=== PATIENT | male | born 1980 | race Two or more races ===

== ENCOUNTER 2024-04-04 12:32 | Inpatient (IN) | payer MEDICARE, MEDICAID ==
[~2024-04-04] VITALS: Ht 172.7 cm; Wt 89.1 kg
[2024-04-04 13:00] VITALS: PULSE 124; RESP 22; O2SAT 98
[2024-04-04] MEDS: LACTATED RINGER'S 1,500 ML IV ONE (13:01)
[2024-04-04] MEDS: ACETAMINOPHEN 325 MG TAB PO PRN (13:01)
[2024-04-04] MEDS: AZTREONAM 1GM INJ 1 GM in D5W 5% 50 ML IV ONE (13:06)
[2024-04-04 13:43] LABS: Base Excess 5.2 mmol/L (-2.0-2.0)
[2024-04-04 13:51] LABS: Hematocrit 34.6 % (41.0-53.0); Hemoglobin 11.5 g/dL (13.5-17.5); Mean Corpuscular Hemoglobin 32.6 pg (28.0-32.0); Mean Corpuscular Hgb Conc. 33.4 g/dL (32.0-36.0); Mean Corpuscular Volume 97.5 fL (80.0-100.0); Red Blood Cells 3.54 10^6/uL (4.5-5.90); Red Cell Distribution Width 15.7 % (11.8-14.3); White Blood Cell 20.4 10^3/uL (4.4-10.8)
[2024-04-04] MEDS: VANCOMYCIN 1GM/200ML 200 ML IV ONE (13:58)
[2024-04-04 14:10] LABS: Alanine Aminotransferase 15 U/L (7-40); Albumin 3.9 g/dL (3.2-4.8); Alkaline Phosphatase 51 U/L (46-116); Anion Gap 7 (5-15); Aspartate Aminotransferase 10 U/L (13-40); BUN/Creatinine Ratio 4.3 (10.0-20.0); Bilirubin, Total 0.3 mg/dL (0.2-1.0); Blood Urea Nitrogen 38 mg/dL (9-23); Calcium 9.4 mg/dL (8.7-10.4); Carbon Dioxide 29 mmol/L (20-30); Chloride 95 mmol/L (98-107); Creatine Kinase IFCC 102 U/L (46-171); Glucose 120 mg/dL (74-106); Potassium 4.1 mmol/L (3.5-5.1); Sodium 131 mmol/L (136-145); Total Protein 7.2 g/dL (5.7-8.2)
[2024-04-04 14:13] LABS: Lactic Acid w/Reflex 2.9 mmol/L (0.4-2.0)
[2024-04-04 14:14] LABS: INR 1.01 (0.9-1.15); Partial Thromboplastin Time 30.2 SEC (24.5-34.5); Prothrombin Time 10.7 sec (9.3-11.8)
[2024-04-04 14:40] LABS: Basophils % (manual) 0 (0.0-2.0); Blast Cells 0; Eosinophils % (manual) 0 (0-7); Metamyelocytes % 0; Myelocytes % 0; Promyelocytes % 0; Reactive Lymphocytes 0
[2024-04-04] MEDS ORDERED: VANCOMYCIN PER PHARMACY 0 MG IV SCH ×2 (15:45→17:00)
[2024-04-04 16:43] LABS: Anisocytosis Slight; Band Neutrophils % (manual) 26; Large Platelets FEW; Lymphocytes % (manual) 1 (10.0-50.0); Monocytes % (manual) 5 (0-12); Platelet Estimate Adequate
[2024-04-04] MEDS ORDERED: MORPHINE SULFATE 4 MG/ML SYR/VIAL IV PRN (17:00)
[2024-04-04] MEDS ORDERED: ONDANSETRON HCL 4 MG/2 ML VIAL IV PRN (17:00)
[2024-04-04] MEDS ORDERED: ACETAMINOPHEN 325 MG TAB PO PRN (17:00)
[2024-04-04] MEDS ORDERED: DOCUSATE SOD 100 MG CAP PO PRN (17:00)
[2024-04-04 19:20] VITALS: PULSE 84; RESP 25; O2SAT 100
[2024-04-04] MEDS: NOREPINEPHRINE 8 MG/250ML KIT 250 ML IV SCH (21:00)
[2024-04-04] MEDS ORDERED: VANCOMYCIN 1GM/200ML 200 ML IV SCH (22:00)
[2024-04-04] MEDS: AZTREONAM 1GM INJ 0.5 GM in D5W 5% 50 ML IV SCH (22:20)
[2024-04-04 23:11] LABS: Urine Bacteria None Seen /hpf (None Seen)
[2024-04-04 23:24] LABS: Urine Blood TRACE /uL (Negative); Urine Clarity Clear (Clear); Urine Color Light-Yellow (Yellow); Urine Protein, UAD 3+ (Negative); Urine Specific Gravity 1.006 (1.001-1.035); Urine Urobilinogen Normal (Negative); Urine WBC 10 /hpf (0 - 3)
[2024-04-05 00:10] LABS: Base Excess 1.8 mmol/L (-2.0-2.0)
[2024-04-05 05:00] LABS: Basophils # (auto) 0 10 ^3/uL (0-0.2); Basophils % (auto) 0.1 % (0.0-2.0); Eosinophils # (auto) 0 10 ^3/uL (0-0.8); Hemoglobin 10.9 g/dL (13.5-17.5); Lymphocytes # (auto) 0.5 10 ^3/uL (0.4-5.4); Lymphocytes % (auto) 3.1 % (10.0-50.0); Mean Corpuscular Hemoglobin 33.6 pg (28.0-32.0); Mean Corpuscular Hgb Conc. 34.1 g/dL (32.0-36.0); Mean Corpuscular Volume 98.4 fL (80.0-100.0); Monocytes % (auto) 5.7 % (0.0-12.0); Neutrophils # (auto) 15.7 10 ^3/uL (1.6-8.6); Neutrophils % (auto) 91.1 % (37.0-80.0); Red Blood Cells 3.25 10^6/uL (4.5-5.90); Red Cell Distribution Width 15.7 % (11.8-14.3); White Blood Cell 17.2 10^3/uL (4.4-10.8)
[2024-04-05 05:06] LABS: Alanine Aminotransferase 18 U/L (7-40); Albumin 3.5 g/dL (3.2-4.8); Alkaline Phosphatase 48 U/L (46-116); Anion Gap 8 (5-15); Aspartate Aminotransferase 15 U/L (13-40); BUN/Creatinine Ratio 4.3 (10.0-20.0); Bilirubin, Total 0.4 mg/dL (0.2-1.0); Calcium 9.2 mg/dL (8.7-10.4); Carbon Dioxide 26 mmol/L (20-30); Chloride 97 mmol/L (98-107); Glucose 94 mg/dL (74-106); Potassium 4.2 mmol/L (3.5-5.1); Sodium 131 mmol/L (136-145); Total Protein 6.5 g/dL (5.7-8.2)
[2024-04-05 06:17] LABS: Blood Urea Nitrogen 48 mg/dL (9-23)
[2024-04-05] MEDS ORDERED: APIX5TAB PO (12:11)
[2024-04-05] MEDS ORDERED: FURO1TAB32 PO (12:11)
[2024-04-05] MEDS ORDERED: AML5T PO (12:11)
[2024-04-05] MEDS ORDERED: B-CO-5 OR (12:11)
[2024-04-05] MEDS ORDERED: B CO PO (12:11)
[2024-04-05] MEDS ORDERED: CALC1TAB10 PO (12:11)
[2024-04-05] MEDS ORDERED: FERR1TAB17 PO (12:11)
[2024-04-05] MEDS ORDERED: SEVE800T8 PO (12:11)
[2024-04-05] MEDS: LIDOCAINE 2%HCL (LOCAL ANESTH.) INJ 10ml MDV ONE ×2 (12:28→12:29)
[2024-04-05] MEDS: ALPRAZolam 0.25 MG TAB PO PRN (16:32)
[2024-04-05 19:00] VITALS: PULSE 100; RESP 18; O2SAT 97
[2024-04-05 20:00] VITALS: PULSE 85; RESP 18; O2SAT 98
[2024-04-05 21:00] VITALS: BP 107/48; PULSE 93; RESP 18; TEMP 99.3; O2SAT 92
[2024-04-05] MEDS: VANCOMYCIN 500 MG in D5W 5% 100 ML IV ONE (22:20)
[2024-04-06] VITALS (8 sets, daily range): BP systolic 107–130; BP diastolic 57–79; PULSE 77–87; RESP 17–20; TEMP 98.1–99.6; O2SAT 93–97
[2024-04-06 10:30] LABS: COVID19 ANTIGEN SOFIA FIA NEGATIVE (NEGATIVE)
[2024-04-06] MEDS ORDERED: SEVELAMER 800 MG TAB PO SCH (18:00)
[2024-04-06] MEDS: SEVELAMER 800 MG TAB PO SCH (18:25)
[2024-04-06] MEDS: APIXABAN 5 MG TAB PO SCH (21:22)
[2024-04-07] VITALS (7 sets, daily range): BP systolic 113–140; BP diastolic 68–88; PULSE 76–92; RESP 17–20; TEMP 97.8–98.9; O2SAT 95–97
[2024-04-07 08:51] LABS: Rapid Influenza A Negative (Negative); Rapid Influenza B Negative (Negative)
[2024-04-07] MEDS: FUROSEMIDE 40 MG TAB PO SCH (09:28)
[2024-04-07] MEDS: amLODIPine BESYLATE 5 MG TAB PO SCH (09:28)
[2024-04-07] MEDS ORDERED: APIXABAN 5 MG TAB PO SCH (10:00)
[2024-04-07 12:02] LABS: Anion Gap 16 (5-15); Carbon Dioxide 18 mmol/L (20-30); Chloride 102 mmol/L (98-107); Potassium 4.3 mmol/L (3.5-5.1)
[2024-04-07 12:03] LABS: Calcium 9.4 mg/dL (8.5-10.1); Hematocrit 31.7 % (41.0-53.0); Hemoglobin 10.9 g/dL (13.5-17.5); Mean Corpuscular Hemoglobin 33.5 pg (28.0-32.0); Mean Corpuscular Hgb Conc. 34.4 g/dL (32.0-36.0); Mean Corpuscular Volume 97.5 fL (80.0-100.0); Red Blood Cells 3.26 10^6/uL (4.5-5.90); Red Cell Distribution Width 15.6 % (11.8-14.3); White Blood Cell 9.7 10^3/uL (4.4-10.8)
[2024-04-07 12:06] LABS: Basophils % (manual) 0 (0.0-2.0); Blast Cells 0; Metamyelocytes % 0; Myelocytes % 0; Promyelocytes % 0; Reactive Lymphocytes 0
[2024-04-07 12:08] LABS: Glucose 89 mg/dL (74-106)
[2024-04-07 12:13] LABS: Sodium 136 mmol/L (136-145)
[2024-04-07 12:14] LABS: Blood Urea Nitrogen 98 mg/dL (9-23)
[2024-04-07 12:31] LABS: Band Neutrophils % (manual) 2; Eosinophils % (manual) 1 (0-7); Lymphocytes % (manual) 15 (10.0-50.0); Monocytes % (manual) 3 (0-12); Platelet Estimate Adequate
[2024-04-08] MEDS: TEMAZEPAM 15 MG CAP PO ONE (01:51)
[2024-04-08 05:00] VITALS: BP 141/89; PULSE 83; RESP 18; TEMP 97.8; O2SAT 99
[2024-04-08 06:48] LABS: Basophils # (auto) 0 10 ^3/uL (0-0.2); Basophils % (auto) 0.3 % (0.0-2.0); Eosinophils # (auto) 0.2 10 ^3/uL (0-0.8); Eosinophils % (auto) 2.2 % (0.0-7.0); Hematocrit 33.6 % (41.0-53.0); Hemoglobin 11.2 g/dL (13.5-17.5); Lymphocytes # (auto) 1.6 10 ^3/uL (0.4-5.4); Lymphocytes % (auto) 19.7 % (10.0-50.0); Mean Corpuscular Hemoglobin 32.8 pg (28.0-32.0); Mean Corpuscular Hgb Conc. 33.3 g/dL (32.0-36.0); Mean Corpuscular Volume 98.5 fL (80.0-100.0); Monocytes % (auto) 12.7 % (0.0-12.0); Neutrophils # (auto) 5.2 10 ^3/uL (1.6-8.6); Neutrophils % (auto) 65.1 % (37.0-80.0); Red Blood Cells 3.41 10^6/uL (4.5-5.90); Red Cell Distribution Width 16.2 % (11.8-14.3)
[2024-04-08 07:00] LABS: Anion Gap 16 (5-15); Calcium 9.3 mg/dL (8.7-10.4); Carbon Dioxide 18 mmol/L (20-30); Chloride 103 mmol/L (98-107); Potassium 4.7 mmol/L (3.5-5.1); Sodium 137 mmol/L (136-145)
[2024-04-08 07:05] LABS: BUN/Creatinine Ratio 6.8 (10.0-20.0); Glucose 86 mg/dL (74-106)
[2024-04-08 07:30] LABS: Blood Urea Nitrogen 116 mg/dL (9-23)
[2024-04-08 08:00] VITALS: PULSE 72
[2024-04-08 08:30] VITALS: BP 122/72; PULSE 74; RESP 17; TEMP 98.5; O2SAT 97
[2024-04-08] MEDS: VANCOMYCIN 500 MG in D5W 5% 100 ML IV ONE (14:09)
[2024-04-08] MEDS: diphenhdrAMINE HCL 25 MG CAP PO PRN (14:09)
[2024-04-08] MEDS: ceFAZolin 1GM/50ML 50 ML IV ONE (16:58)
[2024-04-08 17:05] VITALS: BP 150/83; PULSE 89; RESP 20; TEMP 98.3; O2SAT 97
[2024-04-08 20:00] VITALS: PULSE 85
[2024-04-08 20:46] VITALS: BP 156/87; PULSE 89; RESP 20; TEMP 98.1; O2SAT 96
[2024-04-09] VITALS (11 sets, daily range): BP systolic 128–199; BP diastolic 55–103; PULSE 72–95; RESP 13–22; TEMP 97.8–98.3; O2SAT 78–99
[2024-04-09 05:52] LABS: Chloride 106 mmol/L (98-107); Potassium 4.9 mmol/L (3.5-5.1); Sodium 138 mmol/L (136-145)
[2024-04-09 05:53] LABS: Anion Gap 15 (5-15); Calcium 9.4 mg/dL (8.5-10.1); Carbon Dioxide 17 mmol/L (20-30)
[2024-04-09 05:58] LABS: BUN/Creatinine Ratio 6.7 (10.0-20.0); Glucose 89 mg/dL (74-106)
[2024-04-09 06:09] LABS: Blood Urea Nitrogen 122 mg/dL (9-23)
[2024-04-09] MEDS: SODIUM CHL 0.9% 1000 ML BAG XX ONE (07:00)
[2024-04-09] MEDS: ceFAZolin 1GM/50ML 50 ML IV SCH (10:03)
[2024-04-09] MEDS ORDERED: LIDOCAINE 2%HCL (LOCAL ANESTH.) INJ 20ML MDV ONE (10:51)
[2024-04-09] MEDS ORDERED: fentaNYL CITRATE 100 MCG/2 ML VL ONE (10:51)
[2024-04-09] MEDS ORDERED: MIDAZOLAM HCL 2MG/2ML 2ml VIAL (1mg/ml) ONE (10:52)
[2024-04-09] MEDS ORDERED: ceFAZolin 1GM/50ML 50 ML IV ONE (11:04)
[2024-04-09] MEDS ORDERED: HEPARIN SODIUM (PORCINE) 5000 UNITS/ML 1ML VIAL ONE (11:25)
[2024-04-09] MEDS ORDERED: IOHEXOL 300 MG/ML 100ML BOTTLE IJ ONE (13:15)
[2024-04-09] MEDS ORDERED: EPOETIN ALFA-EPBX 4,000 UNIT/ML VIAL SC ONE (21:00)
[2024-04-10] VITALS (18 sets, daily range): BP systolic 113–143; BP diastolic 53–95; PULSE 68–90; RESP 15–20; TEMP 97.8–98.8; O2SAT 92–100
[2024-04-10 05:44] LABS: Chloride 103 mmol/L (98-107); Potassium 4.8 mmol/L (3.5-5.1); Sodium 136 mmol/L (136-145)
[2024-04-10 05:45] LABS: Anion Gap 12 (5-15); Carbon Dioxide 21 mmol/L (20-30)
[2024-04-10 05:46] LABS: Calcium 9.6 mg/dL (8.5-10.1)
[2024-04-10 05:50] LABS: Glucose 95 mg/dL (74-106)
[2024-04-10 05:51] LABS: BUN/Creatinine Ratio 5.8 (10.0-20.0); Blood Urea Nitrogen 76 mg/dL (9-23)
[2024-04-10] MEDS ORDERED: LIDOCAINE VISCOUS 2% 15ML UD PO ONE (08:30)
[2024-04-10] MEDS ORDERED: MIDAZOLAM HCL 2MG/2ML 2ml VIAL (1mg/ml) IV ONE (08:30)
[2024-04-10] MEDS ORDERED: fentaNYL CITRATE 100 MCG/2 ML VL IV ONE (08:30)
== END 2024-04-10 18:30 | disposition home or self-care (01) | DRG 314 ==
LOC: EDBD 12:32 → ER 12:34 → TELE 17:11 → TELE-EAST 04-05 17:49
PROVIDERS: ADMIT Nurse Practitioner Family; ATTEND Internal Medicine Geriatric Medicine
PROC: 0JPVXXZ Removal of Tunneled Vascular Access Device from Upper Extremity Subcutaneous Tissue and Fascia, External Approach (ICD-10-PCS; 2024-04-05)
PROC: 02PYX3Z Removal of Infusion Device from Great Vessel, External Approach (ICD-10-PCS; 2024-04-05)
PROC: 0JH63XZ Insertion of Tunneled Vascular Access Device into Chest Subcutaneous Tissue and Fascia, Percutaneous Approach (ICD-10-PCS; 2024-04-09)
PROC: 02H633Z Insertion of Infusion Device into Right Atrium, Percutaneous Approach (ICD-10-PCS; 2024-04-09)
PROC: B518ZZA Fluoroscopy of Superior Vena Cava, Guidance (ICD-10-PCS; 2024-04-09)
PROC: B548ZZA Ultrasonography of Superior Vena Cava, Guidance (ICD-10-PCS; 2024-04-09)
PROC: 5A1D70Z Performance of Urinary Filtration, Intermittent, Less than 6 Hours Per Day (ICD-10-PCS; 2024-04-09)
PROC: B24BZZ4 Ultrasonography of Heart with Aorta, Transesophageal (ICD-10-PCS; principal; 2024-04-10)
DX: T80.211A Bloodstream infection due to central venous catheter, initial encounter (principal); A41.02 Sepsis due to Methicillin resistant Staphylococcus aureus; N18.6 End stage renal disease; R65.21 Severe sepsis with septic shock; E87.1 Hypo-osmolality and hyponatremia; I12.0 Hypertensive chronic kidney disease with stage 5 chronic kidney disease or end stage renal disease; E83.39 Other disorders of phosphorus metabolism; Y83.8 Other surgical procedures as the cause of abnormal reaction of the patient, or of later complication, without mention of misadventure at the time of the procedure; E66.9 Obesity, unspecified; D63.1 Anemia in chronic kidney disease; Z99.2 Dependence on renal dialysis; Z86.718 Personal history of other venous thrombosis and embolism; Z79.01 Long term (current) use of anticoagulants; Z68.29 Body mass index [BMI] 29.0-29.9, adult; Y92.89 Other specified places as the place of occurrence of the external cause; R09.02 Hypoxemia
CPT/HCPCS: 36415; 36600; 71045; 71260; 74177; 76604; 80048; 80053; 80202; 81001; 82550; 82565; 82805; 82962; 83605; 84484; 85007; 85014; 85018; 85025; 85027; 85610; 85730; 86850; 86900; 86901; 87040; 87070; 87077; 87081; 87086; 87186; 87426; 87804; 90935; 93005; 93306; 93312; 96365; 96367; 99152; 99291; C1894; G0378; J1642; J2001; J2250; J7060

== ENCOUNTER 2025-03-06 16:46 | Emergency (ER) | payer MEDICARE, MEDICAID ==
[~2025-03-06] VITALS: Ht 152.4 cm; Wt 104.0 kg
[~2025-03-06 16:46] MED LIST: AML5T PO; APIX5TAB PO; B CO PO; B-CO-5 OR; CALC1TAB10 PO; FERR1TAB17 PO; FURO1TAB32 PO; SEVE800T8 PO
--- NOTE | 2025-03-06 17:24 | ED.PDOC ---
History of Present Illness HPI Comments 44-year-old morbidly obese male with PMHx Jugular DVT presents with a chief complaint of lightheadedness and dizziness intermittently secondary to DVT in his jugular. Patient mentions that he was diagnosed with a DVT in October 2023 and was placed on Eliquis. Patient mentions that he was taking the medication, but the copay for it went up and he was unable to pay for it anymore. Patient states that he had a follow-up appointment today at [facility] to check the status of the DVT and they sent him here with paperwork confirming that he still has a DVT in his jugular from a previous dialysis catheter surgery. Time Seen by MD: 17:16 Primary Care Provider: unknown Reviewed Notes: Nurses Notes, Medications, Allergies Allergies: Coded Allergies: NO KNOWN ALLERGIES (Unverified , 04/04/24) Home Meds Reported Medications Amlodipine Besylate (NORVASC TABLET) 5 Mg Tb, 1 TAB PO DAILY, #30 TAB 5 Refills 04/05/24 Sevelamer Carbonate (Renvela) 800 Mg Tab, 1 TAB PO TID, #270 TAB 3 Refills 04/05/24 Calcium Carbonate-Cholecalcife (Calcium 500 +D 500-10 mg-Mcg) 1 Tab Tab, 1 TAB PO, TAB 04/05/24 B-Complex W/ C-Zn & Folic Acid (Dialyvite 800/Zinc) 800 Mg/Zinc Tab, 800 MG PO, TAB 04/05/24 Apixaban Base (ELIQUIS) 5 Mg Tab, 5 MG PO DAILY, TAB 24 B-Complex W/ C & Folic Acid (Elaina-Noah) Tab, 1 OR DAILY, TAB 04/05/24 Furosemide (Lasix) 80 Mg Tab, 1 TAB PO DAILY, #30 TAB 5 Refills 04/05/24 Ferric Citrate (Auryxia) 210 Mg Tab, 210 MG PO DAILY, TAB 04/05/24 Information Source: Patient Mode of Arrival: Ambulatory Severity: Moderate Timing: Months Duration: Since onset Prehospital treatment: None Past Medical History PAST MEDICAL HISTORY: CKF Past Medical History (Other): History of right-sided jugular DVT Surgical History: Denies all surgeries Family History Family History: Reviewed,noncontributory to illness Social History Smoker: Non-Smoker Alcohol: Denies ETOH Use Drugs: Denies Drug Use Lives In: Home Constitutional: denies: chills, diaphoresis, fatigue, fever, malaise, sweats, weakness, others EENTM: denies: blurred vision, double vision, ear bleeding, ear discharge, ear drainage, ear pain, ear ringing, eye pain, eye redness, hearing loss, mouth pain, mouth swelling, nasal discharge, nose bleeding, nose congestion, nose pain, photophobia, tearing, throat pain, throat swelling, voice changes, others Respiratory: denies: cough, hemoptysis, orthopnea, SOB at rest, shortness of breath, SOB with excertion, stridor, wheezing, others Cardiovascular: reports: lightheadedness; denies: chest pain, dizzy spells, diaphoresis, Dyspnea on exertion, edema, irregular heart beat, left arm pain, palpitations, PND, syncope, others Gastrointestinal: denies: abdomen distended, abdominal pain, blood streaked bowels, constipated, diarrhea, dysphagia, difficulty swallowing, hematemesis, melena, nausea, poor appetite, poor fluid intake, rectal bleeding, rectal pain, vomiting, others Genitourinary: denies: burning, dysuria, flank pain, frequency, hematuria, incontinence, penile discharge, penile sore, pain, testicle pain, testicle swelling, urgency, others Neurological: reports: dizziness; denies: fainting, headache, left sided numbness, left sided weakness, numbness, paresthesia, pre-existing deficit, righ t sided numbness, right sided weakness, seizure, speech problems, tingling, tremors, weakness, others Musculoskeletal: denies: back pain, gout, joint pain, joint swelling, muscle pain, muscle stiffness, neck pain, others Integumetry: denies: bruises, change in color, change in hair/nails, dryness, laceration, lesions, lumps, rash, wounds, others Allergic/Immunocompromised: denies: Difficulty Healing, Frequent Infections, Hives, Itching, others Hematologic/Lymphatic: denies: anemia, blood clots, easy bleeding, easy bruising, swollen glands, others Endocrine: denies: excessive hunger, excessive sweating, excessive thirst, excessive urination, flushing, intolerance to cold, intolerance to heat, unexplained weight gain, unexplained weight loss, others Psychiatric: denies: anxiety, bipolar disorder, depression, hopeless, panic disorder, schizophrenia, sleepless, suicidal, others All Other Systems: Reviewed and Negative Physical Exam General Appearance: Mild Distress (Patient had some mild discomfort due to dizziness at time of evaluation.), Obese HEENT: Normal ENT Inspection, Pharynx Normal, TMs Normal Neck: Full Range of Motion, Non-Tender, Normal, Normal Inspection, Other (No jugular venous distention noted. No signs of trauma.) Respiratory: Chest Non-Tender, Lungs Clear, No Accessory Muscle Use, No Respiratory Distress, Normal Breath Sounds Cardiovascular: No Edema, No JVD, No Murmur, No Gallop, Normal Peripheral Pulses, Regular Rate/Rhythm Breast Exam: Deferred Gastrointestinal: No Organomegaly, Non Tender, No Pulsatile Mass, Normal Bowel Sounds, Soft Genitalia: Deferred Pelvic: Deferred Rectal: Deferred Extremities: No calf tenderness, Normal capillary refill, Normal inspection, Normal range of motion, Non-tender, No pedal edema Musculoskeletal : Apperance: Normal Neurologic: Alert, No Motor Deficits, Normal Affect, Normal Mood, No Sensory Deficits Cerebellar Function: Normal Reflexes: Normal Skin: Dry, Normal Color, Warm Lymphatic: No Adenopathy Was a procedure done? Was a procedure done?: No Differential Dx Considerations may include: Jugular DVT, dizziness X-Ray, Labs, Meds, VS Vital Signs Date Time Temp Pulse Resp B/P (MAP) Pulse Ox O2 Delivery O2 Flow Rate FiO2 03/06/25 17:00 98.8 102 16 138/78 (98) 98 98.8 Lab Test 03/06/25 18:14 Range/Units Prothrombin Time 10.3 9.3-11.8 sec Prothrombin Time INR 0.97 0.9-1.15 X-Ray, Labs, Meds, VS Comment Doppler ultrasound of the right internal jugular vein revealed a suspected chronic partial DVT. Patient was given a dose of Xarelto and will be sent home with a prescription. Advised patient I am not sure what else can be done as the patient needs to utilize medication for his medical concerns. Patient should follow up with the primary care provider for long-term management of his condition. 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 e-Prescriptions Rivaroxaban (Xarelto Tablet) 15 Mg Tb 15 MG PO BID for 21 Days, #42 TAB Prov: BERT LOCKHART PAC 03/06/25 Discharged With: Self, Friend Critical Care Note Critical Care Time?: No Stability Stability form required: No Heart Score Heart Score: Heart Score Response (Comments) Value History N/A 0 EKG N/A 0 Age N/A 0 Risk Factors N/A 0 Troponin N/A 0 Total 0 I personally scribed for IRINEO KELLER MD ([email or web address]) on 03/06/25 at 17:24. Electronically submitted by Indio Buitrago ([email or web address]). IRINEO KELLER MD March 06, 2025 17:24 BERT LOCKHART PAC March 06, 2025 19:23
--- NOTE | 2025-03-06 18:11 | DVH ---
CLINICAL HISTORY: Right-sided jugular DVT COMPARISON: None FINDINGS: Compression evaluation and color Doppler evaluation of the deep veins of the right upper ex tremity was performed. Evaluation for augmentation and flow characteristics with doppler pulse wave i maging was performed. Question partial compressibility from the proximal, mid and distal internal jugular, likely compatibl e with chronic deep venous thrombosis. Remainder of the right upper extremity deep venous structures appear to be patent. IMPRESSION: 1. Suspected chronic partial deep venous thrombosis of the right internal jugular vein.
[2025-03-06 18:49] LABS: INR 0.97 (0.9-1.15); Prothrombin Time 10.3 sec (9.3-11.8)
[2025-03-06] MEDS ORDERED: RIV15T PO (19:33)
[2025-03-06 21:00] VITALS: BP 116/71; PULSE 99; RESP 16; TEMP 98.8; O2SAT 97
[2025-03-07] MEDS ORDERED: RIVAROXABAN 15 MG TAB PO SCH (18:00)
== END 2025-03-06 21:25 | disposition home or self-care (01) ==
LOC: ER 16:46
DX: I82.C21 Chronic embolism and thrombosis of right internal jugular vein (principal); E66.01 Morbid (severe) obesity due to excess calories; Z79.01 Long term (current) use of anticoagulants; Z79.899 Other long term (current) drug therapy; Z68.41 Body mass index [BMI] 40.0-44.9, adult
CPT/HCPCS: 36415; 85610; 93971

== ENCOUNTER 2025-04-19 10:37 | Inpatient (IN) | payer MEDICARE, MEDICAID ==
[~2025-04-19] VITALS: Ht 152.4 cm; Wt 110.0 kg
[~2025-04-19 10:37] MED LIST changes: +RIV15T PO
--- NOTE | 2025-04-19 11:26 | ED.PDOC ---
History of Present Illness HPI Comments 44-year-old male with PMHx ESRD, HTN presents with a chief complaint of facial swelling x onset last night. Patient has swelling to his right cheek, states that he had tooth extraction x 1 month ago, but has been fine since. Patient reports that the edema began spontaneously. Patient is able to move his mouth freely, open and close, speak in full sentences. Chief Complaint: Face pain Time Seen by MD: 11:01 Primary Care Provider: MALINA Turpin Notes: Medications, Allergies Allergies: Coded Allergies: NO KNOWN ALLERGIES (Unverified , 04/04/24) Home Meds Active Scripts Rivaroxaban (Xarelto Tablet) 15 Mg Tb, 15 MG PO BID for 21 Days, #42 TAB Prov:BERT LOCKHART PAC 03/06/25 Reported Medications Amlodipine Besylate (NORVASC TABLET) 5 Mg Tb, 1 TAB PO DAILY, #30 TAB 5 Refills 04/05/24 Sevelamer Carbonate (Renvela) 800 Mg Tab, 1 TAB PO TID, #270 TAB 3 Refills 04/05/24 Calcium Carbonate-Cholecalcife (Calcium 500 +D 500-10 mg-Mcg) 1 Tab Tab, 1 TAB PO, TAB 04/05/24 B-Complex W/ C-Zn & Folic Acid (Dialyvite 800/Zinc) 800 Mg/Zinc Tab, 800 MG PO, TAB 04/05/24 Apixaban Base (ELIQUIS) 5 Mg Tab, 5 MG PO DAILY, TAB 04/05/24 B-Complex W/ C & Folic Acid (Elaina-Noah) Tab, 1 OR DAILY, TAB 04/05/24 Furosemide (Lasix) 80 Mg Tab, 1 TAB PO DAILY, #30 TAB 5 Refills 04/05/24 Ferric Citrate (Auryxia) 210 Mg Tab, 210 MG PO DAILY, TAB 04/05/24 Information Source: Patient Mode of Arrival: Ambulatory Severity: Moderate Timing: Hours Duration: Since onset Prehospital treatment: None Past Medical History PAST MEDICAL HISTORY: CKF Surgical History: Denies all surgeries Family History Family History: Reviewed,noncontributory to illness Social History Smoker: Non-Smoker Alcohol: Denies ETOH Use Drugs: Denies Drug Use Lives In: Home Constitutional: denies: chills, diaphoresis, fatigue, fever, malaise, sweats, weakness, others EENTM: denies: blurred vision, double vision, ear bleeding, ear discharge, ear drainage, ear pain, ear ringing, eye pain, eye redness, hearing loss, mouth pain, mouth swelling, nasal discharge, nose bleeding, nose congestion, nose pain, photophobia, tearing, throat pain, throat swelling, voice changes, others Respiratory: denies: cough, hemoptysis, orthopnea, SOB at rest, shortness of breath, SOB with excertion, stridor, wheezing, others Cardiovascular: reports: edema; denies: chest pain, dizzy spells, diaphoresis, Dyspnea on exertion, irregular heart beat, left arm pain, lightheadedness, palpitations, PND, syncope, others Gastrointestinal: denies: abdomen distended, abdominal pain, blood streaked bowels, constipated, diarrhea, dysphagia, difficulty swallowing, hematemesis, melena, nausea, poor appetite, poor fluid intake, rectal bleeding, rectal pain, vomiting, others Genitourinary: denies: burning, dysuria, flank pain, frequency, hematuria, incontinence, penile discharge, penile sore, pain, testicle pain, testicle swelling, urgency, others Neurological: denies: dizziness, fainting, headache, left sided numbness, left sided weakness, numbness, paresthesia, pre-existing deficit, right sided numbness, right sided weakness, seizure, speech problems, tingling, tremors, weakness, others Musculoskeletal: denies: back pain, gout, joint pain, joint swelling, muscle pain, muscle stiffness, neck pain, others Integumetry: denies: bruises, change in color, change in hair/nails, dryness, laceration, lesions, lumps, rash, wounds, others Allergic/Immunocompromised: denies: Difficulty Healing, Frequent Infections, Hives, Itching, others Hematologic/Lymphatic: denies: anemia, blood clots, easy bleeding, easy bruising, swollen glands, others Endocrine: denies: excessive hunger, excessive sweating, excessive thirst, excessive urination, flushing, intolerance to cold, intolerance to heat, unexplained weight gain, unexplained weight loss, others Psychiatric: denies: anxiety, bipolar disorder, depression, hopeless, panic disorder, schizophrenia, sleepless, suicidal, others All Other Systems: Reviewed and Negative Physical Exam General Appearance: Moderate Distress, Normal HEENT: Normal ENT Inspection, Pharynx Normal, TMs Normal Neck: Full Range of Motion, Non-Tender Respiratory: Chest Non-Tender, Lungs Clear, No Accessory Muscle Use, No Respiratory Distress, Normal Breath Sounds Cardiovascular: No Edema, No JVD, No Murmur, No Gallop, Normal Peripheral Pulses, Regular Rate/Rhythm Breast Exam: Deferred Gastrointestinal: No Organomegaly, Non Tender, No Pulsatile Mass, Normal Bowel Sounds, Soft Genitalia: Deferred Pelvic: Deferred Rectal: Deferred Extremities: No calf tenderness, Normal capillary refill, Normal inspection, Normal range of motion, Non-tender, No pedal edema Musculoskeletal : Apperance: Normal Neurologic: Alert, strategic buyer II-XII nml as Tested, No Motor Deficits, Normal Affect, Normal Mood, No Sensory Deficits Cerebellar Function: Normal Reflexes: Normal Skin: Dry, Normal Color, Warm Peripheral Pulses: 3+ Radial (R), 3+ Radial (L) Lymphatic: No Adenopathy Was a procedure done? Was a procedure done?: No Differential Dx Considerations may include: Dental caries Cystic lesion X-Ray, Labs, Meds, VS Vital Signs Date Time Temp Pulse Resp B/P (MAP) Pulse Ox O2 Delivery O2 Flow Rate FiO2 04/19/25 10:50 98.4 97 20 130/92 (105) 98 98.4 Lab Test 04/19/25 11:27 Range/Units White Blood Count 6.7 4.4-10.8 10^3/uL Red Blood Count 3.89 L 4.5-5.90 10^6/uL Hemoglobin 13.9 13.5-17.5 g/dL Hematocrit 39.2 L 41.0-53.0 % Mean Corpuscular Volume 100.8 H 80.0-100.0 fL Mean Corpuscular Hemoglobin 35.7 H 28.0-32.0 pg Mean Corpuscular Hemoglobin Concent 35.4 32.0-36.0 g/dL Red Cell Distribution Width 13.9 11.8-14.3 % Platelet Count 253 140-450 10^3/uL Mean Platelet Volume 6.9 6.9-10.8 fL Neutrophils (%) (Auto) 64.0 37.0-80.0 % Lymphocytes (%) (Auto) 18.8 10.0-50.0 % Monocytes (%) (Auto) 14.0 H 0.0-12.0 % Eosinophils (%) (Auto) 2.8 0.0-7.0 % Basophils (%) (Auto) 0.4 0.0-2.0 % Neutrophils # (Auto) 4.3 1.6-8.6 10 ^3/uL Lymphocytes # (Auto) 1.3 0.4-5.4 10 ^3/uL Monocytes # (Auto) 0.9 0-1.3 10 ^3/uL Eosinophils # (Auto) 0.2 0-0.8 10 ^3/uL Basophils # (Auto) 0 0-0.2 10 ^3/uL Nucleated Red Blood Cells 0.0 % Sodium Level 134 L 136-145 mmol/L Potassium Level 4.1 3.5-5.1 mmol/L Chloride Level 89 L 98-107 mmol/L Carbon Dioxide Level 34 H 20-31 mmol/L Anion Gap 11 5-15 Blood Urea Nitrogen 46 H 9-23 mg/dL Creatinine 10.09 *H 0.700-1.30 mg/dL Glomerular Filtration Rate Calc 6 >90 mL/min BUN/Creatinine Ratio 4.6 L 10.0-20.0 Serum Glucose 128 H 74-106 mg/dL Calcium Level 11.0 H 8.7-10.4 mg/dL Patient alert pain Does have mild swelling in the right side of his face. No lymph gland involvement. Vitals stable. No tenderness. BUN creatinine elevated. He did get dialysis today. WBC within normal limits. Tongue is not swollen. Airway is not compromised. Establish intravenous access. Was given Zosyn. Was given clindamycin. Reviewed his previous visit. Explained to the patient. Continue monitoring. Time of 1ST Reevaluation: 11:31 Reevaluation 1ST: Unchanged Patient Education/Counseling: Diagnosis, Treatment, Need For Follow Up Family Education/Counseling: No Family Present SEPSIS Sepsis Screen Date sepsis recognized/suspect: Apr 19, 2025 Time Sepsis recognized/suspect: 1044 Recent Procedure: No On Antibiotic Therapy: No Respiratory Rate >20: No Heart Rate >90: No Temp<36 C (96.8 F) or >38.3 C: No SBP <90 or MAP <65 mmHG: No New Acute Mental Status Change: No Is the patient on CPAP, BIPAP,: No Physician Orders Maxillofacial Without (04/19/25 11:09) Vital Signs Date Time Temp Pulse Resp B/P (MAP) Pulse Ox O2 Delivery O2 Flow Rate FiO2 04/19/25 10:50 98.4 97 20 130/92 (105) 98 98.4 Laboratory Tests Test 04/19/25 11:27 White Blood Count 6.7 10^3/uL (4.4-10.8) Departure 1 Departure Time of Disposition: 12:21 Impression: Primary Impression: Facial cellulitis Additional Impressions: ESRD (end stage renal disease) 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 Electronically submitted by Inido Buitrago ([email or web address]). BRIA GILBERT MD Apr 19, 2025 11:26
[2025-04-19 11:43] LABS: Nucleated Red Blood Cells % 0.0 %
[2025-04-19 11:44] LABS: Hematocrit 39.2 % (41.0-53.0); Hemoglobin 13.9 g/dL (13.5-17.5); Mean Corpuscular Hemoglobin 35.7 pg (28.0-32.0); Mean Corpuscular Volume 100.8 fL (80.0-100.0)
[2025-04-19 11:51] LABS: Anion Gap 11 (5-15); Potassium 4.1 mmol/L (3.5-5.1)
[2025-04-19 11:57] LABS: BUN/Creatinine Ratio 4.6 (10.0-20.0)
--- NOTE | 2025-04-19 12:09 | DVH ---
HISTORY: facialswelling TECHNIQUE: Nonenhanced axial images through the facial bones with coronal and sagittal MPR. Radiation Dose Information: CT Dose: CTDI volume is 66.95 mGy. Dose-length product is 1647.82 mGy*cm COMPARISON: None FINDINGS: Mandible: Unremarkable Maxilla: Unremarkable Zygomatic arches: Unremarkable Nasal bone: Unremarkable Orbits: Unremarkable Sinuses: Clear Facial swelling: Edematous changes adjacent to the right side of the mandible. There is a right-side d 3.7 cm complex mass seen on coronal image 33, series 604 and axial image 33, series 3. The mass con tains both solid and fatty elements. Study performed without IV contrast. Abscess can not be excluded . IMPRESSION: 1. 3.7 cm complex mass adjacent to the right side of the mandible. Abscess can not be excluded. Furt her assessment performed with IV contrast and/or MRI imaging if clinically indicated. No sinusitis No osteomyelitis Radiation optimization: All CT scans at this facility use at least one of these dose optimization kecia hniques: automated exposure control mA and/or kV adjustment per patient size (includes targeted exam s where dose is matched to clinical indication) or iterative reconstruction.
[2025-04-19 12:14] LABS: Blood Urea Nitrogen 46 mg/dL (9-23); Calcium 11.0 mg/dL (8.7-10.4); Carbon Dioxide 34 mmol/L (20-31); Chloride 89 mmol/L (98-107); Glucose 128 mg/dL (74-106); Sodium 134 mmol/L (136-145)
[2025-04-19 17:30] VITALS: PULSE 82; RESP 16; O2SAT 99
[2025-04-19] MEDS ORDERED: DOCUSATE SOD 100 MG CAP PO PRN (18:30)
[2025-04-19] MEDS ORDERED: ONDANSETRON HCL 4 MG/2 ML VIAL IV PRN (18:30)
[2025-04-19] MEDS ORDERED: ACETAMINOPHEN 325 MG TAB PO PRN (18:30)
[2025-04-19] MEDS ORDERED: HYDROcodone-ACET 5/325MG TAB PO PRN (18:30)
[2025-04-19] MEDS ORDERED: VANCOMYCIN PER PHARMACY 0 MG IV SCH (18:30)
--- NOTE | 2025-04-19 18:37 | DVHHP2 ---
Admitting Diagnosis: Right facial mass History of Present Illness 44-year-old male with PMHx ESRD, HTN presents with a chief complaint of facial swelling x onset last night. Patient has swelling to his right cheek, states that he had tooth extraction x 1 month ago, but has been fine since. Patient reports that the edema began spontaneously. Patient is able to move his mouth freely, open and close, speak in full sentences. PAST MEDICAL HISTORY: CKF Surgical History: Denies all surgeries Family History Family History: Reviewed,noncontributory to illness Social History Smoker: Non-Smoker Alcohol: Denies ETOH Use Drugs: Denies Drug Use Lives In: Home Patient Family History: FHx: kidney failure G8 MOTHER Allergies: Coded Allergies: NO KNOWN ALLERGIES (Unverified , 04/04/24) Home Meds Active Scripts Rivaroxaban (Xarelto Tablet) 15 Mg Tb, 15 MG PO BID for 21 Days, #42 TAB Prov:BERT LOCKHART PAC 03/06/25 Reported Medications Amlodipine Besylate (NORVASC TABLET) 5 Mg Tb, 1 TAB PO DAILY, #30 TAB 5 Refills 04/05/24 Sevelamer Carbonate (Renvela) 800 Mg Tab, 1 TAB PO TID, #270 TAB 3 Refills 04/05/24 Calcium Carbonate-Cholecalcife (Calcium 500 +D 500-10 mg-Mcg) 1 Tab Tab, 1 TAB PO, TAB 04/05/24 B-Complex W/ C-Zn & Folic Acid (Dialyvite 800/Zinc) 800 Mg/Zinc Tab, 800 MG PO, TAB 04/05/24 Apixaban Base (ELIQUIS) 5 Mg Tab, 5 MG PO DAILY, TAB 04/05/24 B-Complex W/ C & Folic Acid (Elaina-Noah) Tab, 1 OR DAILY, TAB 04/05/24 Furosemide (Lasix) 80 Mg Tab, 1 TAB PO DAILY, #30 TAB 5 Refills 04/05/24 Ferric Citrate (Auryxia) 210 Mg Tab, 210 MG PO DAILY, TAB 04/05/24 Current Medications Current Medications Medications (Trade) Dose Ordered Sig/Sita Route PRN Reason Start Time Stop Time Status Last Admin Vancomycin HCl 0 ml @ 0 mls/hr UD IV 04/19/25 18:30 UNV Vital Signs Vital Signs Date Time Temp Pulse Resp B/P (MAP) Pulse Ox O2 Delivery O2 Flow Rate FiO2 04/19/25 17:30 82 16 99 Room Air* 0 21 04/19/25 17:00 152/84 (106) 04/19/25 15:08 98.0 98.0 Physical Exam Generally-44 years old male, well nourished well developed. No apparent distress HEENT-atraumatic, right facial edema, nontender Heart-regular rate and rhythm Lungs clear to auscultate Abdomen soft nontender nondistended positive left groin grafts Musculoskeletal-no edema cyanosis Neuro-AO x3, no focal deficits Results Labs Test 04/19/25 11:27 Range/Units White Blood Count 6.7 4.4-10.8 10^3/uL Red Blood Count 3.89 L 4.5-5.90 10^6/uL Hemoglobin 13.9 13.5-17.5 g/dL Hematocrit 39.2 L 41.0-53.0 % Mean Corpuscular Volume 100.8 H 80.0-100.0 fL Mean Corpuscular Hemoglobin 35.7 H 28.0-32.0 pg Mean Corpuscular Hemoglobin Concent 35.4 32.0-36.0 g/dL Red Cell Distribution Width 13.9 11.8-14.3 % Platelet Count 253 140-450 10^3/uL Mean Platelet Volume 6.9 6.9-10.8 fL Neutrophils (%) (Auto) 64.0 37.0-80.0 % Lymphocytes (%) (Auto) 18.8 10.0-50.0 % Monocytes (%) (Auto) 14.0 H 0.0-12.0 % Eosinophils (%) (Auto) 2.8 0.0-7.0 % Basophils (%) (Auto) 0.4 0.0-2.0 % Neutrophils # (Auto) 4.3 1.6-8.6 10 ^3/uL Lymphocytes # (Auto) 1.3 0.4-5.4 10 ^3/uL Monocytes # (Auto) 0.9 0-1.3 10 ^3/uL Eosinophils # (Auto) 0.2 0-0.8 10 ^3/uL Basophils # (Auto) 0 0-0.2 10 ^3/uL Nucleated Red Blood Cells 0.0 % Sodium Level 134 L 136-145 mmol/L Potassium Level 4.1 3.5-5.1 mmol/L Chloride Level 89 L 98-107 mmol/L Carbon Dioxide Level 34 H 20-31 mmol/L Anion Gap 11 5-15 Blood Urea Nitrogen 46 H 9-23 mg/dL Creatinine 10.09 *H 0.700-1.30 mg/dL Glomerular Filtration Rate Calc 6 >90 mL/min BUN/Creatinine Ratio 4.6 L 10.0-20.0 Serum Glucose 128 H 74-106 mg/dL Calcium Level 11.0 H 8.7-10.4 mg/dL Primary Diagnosis Right facial mass Plan Right facial mass, nontender, mild discomfort with the palpation. No recent too th abscess Check ESR, CRP to assess for possible inflammation CT scan shows right facial mass. Hematoma, lesion, infection without contrast. repeat CT scan with IV contrast Pt had HD on 04/19. 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
[2025-04-19 19:14] VITALS: BP 139/75; PULSE 86; RESP 18; TEMP 97.8; O2SAT 97
[2025-04-19 19:17] VITALS: RESP 18; O2SAT 98
[2025-04-19] MEDS: VANCOMYCIN 1.75GM/350ML IV ONE (20:09)
[2025-04-19] MEDS: SODIUM CHLOR 0.9% PF (SALINE LOCK) 10ML VIAL/SYR IV SCH (20:09)
[2025-04-19] MEDS: SEVELAMER 800 MG TAB PO SCH (21:05)
[2025-04-19 23:15] VITALS: BP 121/74; PULSE 82; RESP 18; TEMP 98.1; O2SAT 98
[2025-04-19] MEDS ORDERED: TAMS0.4C39 PO (23:20)
[2025-04-20] VITALS (8 sets, daily range): BP systolic 105–142; BP diastolic 43–81; PULSE 84–97; RESP 16–20; TEMP 97.7–98.7; O2SAT 94–99
[2025-04-20 07:23] LABS: Alanine Aminotransferase 37 U/L (7-40); Albumin 4.6 g/dL (3.2-4.8); Alkaline Phosphatase 96 U/L (46-116); Anion Gap 17 (5-15); BUN/Creatinine Ratio 5.2 (10.0-20.0); Carbon Dioxide 26 mmol/L (20-31); Glucose 90 mg/dL (74-106); Potassium 5.0 mmol/L (3.5-5.1); Total Protein 7.7 g/dL (5.7-8.2)
[2025-04-20 07:37] LABS: Hematocrit 38.6 % (41.0-53.0); Hemoglobin 13.2 g/dL (13.5-17.5); Mean Corpuscular Hemoglobin 35.6 pg (28.0-32.0); Mean Corpuscular Volume 104.1 fL (80.0-100.0); Nucleated Red Blood Cells % 0.1 %
[2025-04-20 07:40] LABS: Blood Urea Nitrogen 71 mg/dL (9-23); Calcium 10.5 mg/dL (8.7-10.4); Chloride 91 mmol/L (98-107); Sodium 134 mmol/L (136-145)
[2025-04-20 07:41] LABS: Bilirubin, Total 0.2 mg/dL (0.2-1.0)
[2025-04-20] MEDS: APIXABAN 5 MG TAB PO SCH (09:39)
[2025-04-20] MEDS: B-COMPLEX W/ C & FOLIC ACID(NEPHROVITE TAB) PO SCH (10:52)
[2025-04-20] MEDS: FUROSEMIDE 40 MG TAB PO SCH (10:52)
--- NOTE | 2025-04-20 14:06 | DVHPN2 ---
Reviewed: Care Plan, H&P, Labs, Medications, Previous Orders, Radiology Changes from previous H/P or p: No Changes General: Per HPI Objective Vitals Vital Signs Date Time Temp Pulse Resp B/P (MAP) Pulse Ox O2 Delivery O2 Flow Rate FiO2 04/20/25 10:52 113/57 04/20/25 09:00 98.5 84 16 96 98.5 04/20/25 08:00 Room Air* 0 21 Intake/Output Intake and Output 04/20/25 07:00 Intake Total 800 ml Balance 800 ml Intake Oral 800 ml # Voids 1 General Appearance: Alert, Oriented X3, Cooperative HEENT: Atraumatic Cardiovascular: Regular rate, Normal S1, Normal S2 Abdomen: Normal bowel sounds, Soft Medications Current Medications Medications Dose Ordered Sig/Sita Route Start Time Stop Time Status Last Admin Dose Admin Vancomycin HCl 0 ml @ 0 mls/hr UD IV 04/19/25 18:30 Sodium Chloride 10 ml Q8HR IV 04/19/25 22:00 04/20/25 05:53 10 ML Docusate Sodium 100 mg BIDPRN PRN PO 04/19/25 18:30 Acetaminophen 650 mg Q6HP PRN PO 04/19/25 18:30 Acetaminophen/ Hydrocodone Bitart 1 tab Q4HP PRN PO 04/19/25 18:30 Ondansetron HCl 4 mg Q4HP PRN IV 04/19/25 18:30 Amlodipine Besylate 5 mg DAILY PO 04/20/25 10:00 04/20/25 10:52 5 MG Apixaban 5 mg DAILY PO 04/20/25 10:00 Multivit/Ca Carb/ B Cmplx/FA/Prenat 1 tab DAILY PO 04/20/25 10:00 04/20/25 10:52 1 TAB Patient Own Medication 210 mg DAILY PO 04/20/25 10:00 Furosemide 80 mg DAILY PO 04/20/25 10:00 04/20/25 10:52 80 MG Sevelamer HCl 800 mg TID PO 04/19/25 22:00 04/20/25 05:52 800 MG Laboratory Results Laboratory Tests 04/20/25 06:26 Chemistry Test 04/20/25 06:26 Albumin 4.6 g/dL (3.2-4.8) Calcium Level 10.5 mg/dL (8.7-10.4) H Total Protein 7.7 g/dL (5.7-8.2) LFT Test 04/20/25 06:26 Alanine Aminotransferase (ALT) 37 U/L (7-40) Alkaline Phosphatase 96 U/L (46-116) Aspartate Amino Transferase (AST) 25 U/L (13-40) Total Bilirubin 0.2 mg/dL (0.2-1.0) Microbiology Microbiology Date/Time Source Procedure Growth Status 04/19/25 23:21 Nose MRSA Screen - Final Complete Labs and/or images reviewed: Labs reviewed by me, Image(s) reviewed by me Assessment/Plan Assessment/Plan Right facial mass ESRD (end stage renal disease) Facial cellulitis Sepsis Chronic deep vein thrombosis (DVT) of internal jugular vein 04/20/2025 Patient's develop swelling on his right face about two days ago. This is acute, he did notice his facial swelling prior to that. Suspected to have an infectious source versus other etiology. Obtaining an MRI and cancel CT with contrast due to patient being on dialysis and still able to make decent amount of urine daily Consulted Nephrology for ESRD management Plan discussed with: Patient Date of Service: Apr 20, 2025 Billing Provider: LANE MULLEN DO Common Visit Codes: [id number] INP/OBS CARE(HIGH) LANE MULLEN DO Apr 20, 2025 14:06
--- NOTE | 2025-04-20 16:55 | DVH ---
CLINICAL HISTORY: Right-sided facial swelling. TECHNIQUE: Multi sequence multi planar MRI images of the maxillofacial region were obtained without IV contrast. COMPARISON: CT dated 04/19/2025. FINDINGS: Examination is limited without IV contrast. There is also motion artifact limiting evaluat ion. Moderate subcutaneous edema and complex fluid is seen along the right side of the face, adjacent to the anterior aspect of the right masseter muscle and along the right platysma. Focal ovoid struct ure within the area of inflammation measuring up to 3.4 cm, possibly focal area of inflammation, appe ars to have some fatty component and fluid. Limited evaluation of this process without IV contrast. M oderate mucosal thickening of the paranasal sinuses. Small subcentimeter submandibular lymph nodes, l ikely reactive. Nasopharyngeal, toshia pharyngeal, hypopharyngeal soft tissues appear unremarkable. No s ignificant abnormality identified in the submandibular glands or parotid glands. IMPRESSION: Soft tissue inflammatory changes along the right side of the face as described above with complex are a abutting the anterior aspect of the right masseter muscle, likely a focal area of inflammation, pos sible phlegmon. Abscess not excluded in the appropriate clinical setting. Limited evaluation for ab scess on noncontrast enhanced MRI.
[2025-04-20] MEDS: SEVELAMER 800 MG TAB PO SCH (18:18)
--- NOTE | 2025-04-20 20:00 | DVHINCON2 ---
Date of service: Apr 20, [address] Cisco Limon Reason for Consultation End-stage kidney disease History of Present Illness This is a 44-year-old male with a history of end-stage kidney disease on hemodialysis, hypertension, hyperphosphatemia who presents to the emergency room because of swelling on the right side of his face. As per the history obtained from the patient he had a tooth removed on that side about four weeks ago. He was doing well until about two days ago when he noticed swelling on the right side of his face and hence came into the emergency room to have it evaluated. Patient underwent a CT of the maxillofacial area on admission which was c oncerning for cellulitis and probable abscess. Hence underwent MRI of the face. Started on IV antibiotics. Nephrology consulted for continuation of dialysis. Last dialysis was on Monday. Past Medical History As stated above Past Surgical History AV graft formation Family History: FHx: kidney failure G8 MOTHER Social History No active history of smoking, alcohol or drug abuse. Allergies: Coded Allergies: NO KNOWN ALLERGIES (Unverified , 04/04/24) Home Meds Active Scripts Rivaroxaban (Xarelto Tablet) 15 Mg Tb, 15 MG PO BID for 21 Days, #42 TAB Prov:BERT LOCKHART PAC 03/06/25 Reported Medications Tamsulosin Hcl (Tamsulosin Hcl) 0.4 Mg Cap, 1 CAP PO DAILY 04/19/25 Amlodipine Besylate (NORVASC TABLET) 5 Mg Tb, 1 TAB PO DAILY, #30 TAB 5 Refills 04/05/24 Sevelamer Carbonate (Renvela) 800 Mg Tab, 1 TAB PO TID, #270 TAB 3 Refills 04/05/24 Calcium Carbonate-Cholecalcife (Calcium 500 +D 500-10 mg-Mcg) 1 Tab Tab, 1 TAB P O, TAB 04/05/24 B-Complex W/ C-Zn & Folic Acid (Dialyvite 800/Zinc) 800 Mg/Zinc Tab, 800 MG PO, TAB 04/05/24 B-Complex W/ C & Folic Acid (Elaina-Noah) Tab, 1 OR DAILY, TAB 04/05/24 Furosemide (Lasix) 80 Mg Tab, 1 TAB PO DAILY, #30 TAB 5 Refills 04/05/24 Ferric Citrate (Auryxia) 210 Mg Tab, 210 MG PO DAILY, TAB 04/05/24 Discontinued Reported Medications Apixaban Base (ELIQUIS) 5 Mg Tab, 5 MG PO DAILY, TAB 04/05/24 Current Medications Current Medications Medications (Trade) Dose Ordered Sig/Sita Route PRN Reason Start Time Stop Time Status Last Admin Sodium Chloride (Saline Lock Ns) 10 ml Q8HR IV 04/19/25 22:00 04/20/25 14:09 Amlodipine Besylate (Norvasc Tablet) 5 mg DAILY PO 04/20/25 10:00 04/20/25 10:52 Apixaban (Eliquis) 5 mg DAILY PO 04/20/25 10:00 Multivit/Ca Carb/ B Cmplx/FA/Prenat (Nephro-Noah Tablet) 1 tab DAILY PO 04/20/25 10:00 04/20/25 10:52 Patient Own Medication 210 mg DAILY PO 04/20/25 10:00 Furosemide (Lasix Tablet) 80 mg DAILY PO 04/20/25 10:00 04/20/25 10:52 Sevelamer HCl (Renagel) 800 mg TID PO 04/19/25 22:00 04/20/25 14:24 DC 04/20/25 14:09 Ceftriaxone Sodium/Dextrose 50 ml @ 50 mls/hr DAILY IV 04/21/25 10:00 Sevelamer HCl (Renagel) 800 mg TIDWM PO 04/20/25 18:00 04/20/25 18:18 Review of Systems Twelve point review of systems negative except as stated in the HPI Vital Signs Vital Signs Date Time Temp Pulse Resp B/P (MAP) Pulse Ox O2 Delivery O2 Flow Rate FiO2 04/20/25 17:00 97.7 94 19 142/81 (101) 97 97.7 04/20/25 08:00 Room Air* 0 21 Physical Exam Awake alert oriented x3 HEENT: Mild swelling on the right side of the face Lungs: Bilateral good air entry CVS: S1, S2 regular rate rhythm Abdomen: Soft, bowel sounds present [employer] INSPECTOR: No focal deficits Extremities: No edema Labs/Diagnostic Data Labs Test 04/20/25 06:26 04/19/25 18:58 04/19/25 11:27 Range/Units White Blood Count 8.7 # 4.4-10.8 10^3/uL Red Blood Count 3.71 L 4.5-5.90 10^6/uL Hemoglobin 13.2 L 13.5-17.5 g/dL Hematocrit 38.6 L 41.0-53.0 % Mean Corpuscular Volume 104.1 H 80.0-100.0 fL Mean Corpuscular Hemoglobin 35.6 H 28.0-32.0 pg Mean Corpuscular Hemoglobin Concent 34.2 32.0-36.0 g/dL Red Cell Distribution Width 14.2 11.8-14.3 % Platelet Count 229 140-450 10^3/uL Mean Platelet Volume 7.5 6.9-10.8 fL Neutrophils (%) (Auto) 67.7 37.0-80.0 % Lymphocytes (%) (Auto) 13.2 10.0-50.0 % Monocytes (%) (Auto) 15.6 H 0.0-12.0 % Eosinophils (%) (Auto) 3.0 0.0-7.0 % Basophils (%) (Auto) 0.5 0.0-2.0 % Neutrophils # (Auto) 5.9 1.6-8.6 10 ^3/uL Lymphocytes # (Auto) 1.1 0.4-5.4 10 ^3/uL Monocytes # (Auto) 1.4 H 0-1.3 10 ^3/uL Eosinophils # (Auto) 0.3 0-0.8 10 ^3/uL Basophils # (Auto) 0 0-0.2 10 ^3/uL Nucleated Red Blood Cells 0.1 % Sodium Level 134 L 136-145 mmol/L Potassium Level 5.0 3.5-5.1 mmol/L Chloride Level 91 L 98-107 mmol/L Carbon Dioxide Level 26 20-31 mmol/L Anion Gap 17 H 5-15 Blood Urea Nitrogen 71 #H 9-23 mg/dL Creatinine 13.66 #*H 0.700-1.30 mg/dL Glomerular Filtration Rate Calc 4 >90 mL/min BUN/Creatinine Ratio 5.2 L 10.0-20.0 Serum Glucose 90 74-106 mg/dL Calcium Level 10.5 H 8.7-10.4 mg/dL Total Bilirubin 0.2 0.2-1.0 mg/dL Aspartate Amino Transferase (AST) 25 13-40 U/L Alanine Aminotransferase (ALT) 37 7-40 U/L Alkaline Phosphatase 96 46-116 U/L Total Protein 7.7 5.7-8.2 g/dL Albumin 4.6 3.2-4.8 g/dL Erythrocyte Sedimentation Rate 63 H 0-20 mm/hr C-Reactive Protein High Sensitivity 0.49 <1.0 mg/dL Microbiology Date/Time Source Procedure Growth Status 04/19/25 23:21 Nose MRSA Screen - Final Complete Assessment End-stage kidney disease on hemodialysis Right facial cellulitis Hypertension Plan/Recommendation Continue with the IV antibiotics MRI fails results noted. We will schedule patient for dialysis tomorrow. Blood pressure control. Continue with sevelemer Plan discussed with: Patient DINESH PEREZ MD Apr 20, 2025 20:00
[2025-04-21] VITALS (8 sets, daily range): BP systolic 99–152; BP diastolic 62–87; PULSE 76–95; RESP 16–20; TEMP 98–98.2; O2SAT 95–100
[2025-04-21 06:48] LABS: Hematocrit 34.7 % (41.0-53.0); Hemoglobin 12.0 g/dL (13.5-17.5); Mean Corpuscular Hemoglobin 35.3 pg (28.0-32.0); Mean Corpuscular Volume 101.8 fL (80.0-100.0); Nucleated Red Blood Cells % 0.1 %
[2025-04-21 06:53] LABS: Alanine Aminotransferase 25 U/L (7-40); Albumin 4.2 g/dL (3.2-4.8); Alkaline Phosphatase 111 U/L (46-116); Anion Gap 15 (5-15); BUN/Creatinine Ratio 5.4 (10.0-20.0); Calcium 9.4 mg/dL (8.7-10.4); Carbon Dioxide 26 mmol/L (20-31); Glucose 94 mg/dL (74-106); Potassium 4.9 mmol/L (3.5-5.1); Sodium 137 mmol/L (136-145); Total Protein 7.3 g/dL (5.7-8.2)
[2025-04-21 06:54] LABS: Bilirubin, Total 0.2 mg/dL (0.2-1.0); Chloride 96 mmol/L (98-107)
[2025-04-21 06:56] LABS: Blood Urea Nitrogen 94 mg/dL (9-23)
[2025-04-21] MEDS ORDERED: SODIUM CHL 0.9% 1000 ML BAG XX ONE (07:00)
[2025-04-21] MEDS: cefTRIAXone 2GM/50ML D5W 50 ML IV SCH (08:37)
[2025-04-21] MEDS: FERRIC CITRATE 210 MG PO SCH (12:00)
--- NOTE | 2025-04-21 15:01 | DVHPN2 ---
Progress Note - Dictate Date Seen: Apr 21, 2025 Has the PT tested + for MRSA If YES, has PT been informed?: No Medical Necessity Reason Pt with a Central, PICC or Fol: No Subjective Since April for patient's has had right cheek worsening swelling. He had a tooth extraction about three weeks ago vital signs Vital Sign Date Time Temp Pulse Resp B/P (MAP) Pulse Ox O2 Delivery O2 Flow Rate FiO2 04/21/25 13:19 98.0 82 18 152/76 (101) 97 98.0 04/21/25 08:00 Room Air* 0 21 Total Intake and Output 04/20/25 04/20/25 04/21/25 15:00 23:00 07:00 Intake Total 700 ml 450 ml Balance 700 ml 450 ml medications Current Medications Medications Dose Ordered Sig/Sita Route Start Time Stop Time Status Last Admin Dose Admin Vancomycin HCl 0 ml @ 0 mls/hr UD IV 04/19/25 18:30 Sodium Chloride 10 ml Q8HR IV 04/19/25 22:00 04/21/25 13:58 10 ML Docusate Sodium 100 mg BIDPRN PRN PO 04/19/25 18:30 Acetaminophen 650 mg Q6HP PRN PO 04/19/25 18:30 Acetaminophen/ Hydrocodone Bitart 1 tab Q4HP PRN PO 04/19/25 18:30 Ondansetron HCl 4 mg Q4HP PRN IV 04/19/25 18:30 Amlodipine Besylate 5 mg DAILY PO 04/20/25 10:00 04/20/25 10:52 5 MG Apixaban 5 mg DAILY PO 04/20/25 10:00 04/21/25 08:36 5 MG Multivit/Ca Carb/ B Cmplx/FA/Prenat 1 tab DAILY PO 04/20/25 10:00 04/21/25 08:35 1 TAB Furosemide 80 mg DAILY PO 04/20/25 10:00 04/21/25 08:36 80 MG Ceftriaxone Sodium/Dextrose 50 ml @ 50 mls/hr DAILY IV 04/21/25 10:00 04/21/25 08:37 50 MLS/HR Sevelamer HCl 800 mg TIDWM PO 04/20/25 18:00 04/21/25 12:53 800 MG Patient Own Medication 420 mg TIDWM PO 04/21/25 18:00 UNV objective HEENT: No evidence of JVD, no oral ulcers. Swelling and induration in the right upper check no skin erythema Pulmonary: Lungs are clear on auscultation bilaterally Cardiovascular S1-S2, no S3 or S4 Abdomen: Bowel sounds positive, soft no rebound tenderness Skin: No rash Neurological: Alert, oriented, no focal weakness Av fistula positive bruit and thrill laboratory and microbiology Laboratory Tests 04/21/25 05:56 Test 04/21/25 05:56 Range/Units Serum Glucose 94 74-106 mg/dL Assessment/Plan Assessment: End-stage kidney disease on hemodialysis Right side of the face inflammation with possible abscess Right facial cellulitis Hypertension Plan/Recommendation: Continue dialysis Monday inpatient Continue with the IV antibiotics, renally dosed Patient needs maxillofacial surgeon or ENT consultation MRI results reviewed Blood pressure control. Continue with sevelemer Plan discussed with: Patient AUBREE HENDRICKSON MD Apr 21, 2025 15:01
[2025-04-21] MEDS: FERRIC CITRATE 420 MG PO SCH (17:35)
--- NOTE | 2025-04-21 19:15 | DVHPN2 ---
Subjective I am assuming the care of the patient was from today onwards who was under the care of the hospitalist team. Patient has received for right facial mass/abscess currently on IV antibiotics. Patient recommended to be higher level of care for ENT/maxillofacial surgeon evaluation. Patient agrees to current plan of care. Reviewed: Care Plan, H&P, Labs, Medications, Previous Orders, Radiology Changes from previous H/P or p: No Changes General: Per HPI Objective Vitals Vital Signs Date Time Temp Pulse Resp B/P (MAP) Pulse Ox O2 Delivery O2 Flow Rate FiO2 04/21/25 17:16 98.1 79 18 149/87 (107) 100 98.1 04/21/25 08:00 Room Air* 0 21 Intake/Output Intake and Output 04/21/25 07:00 Intake Total 1150 ml Balance 1150 ml Intake Oral 1150 ml # Voids 6 # Bowel Movements 1 Exam HEENT pupils are reactive Neck is supple CV is S1-S2 regular rate and rhythm Respiratory are clear GI positive posterior bowel sound Extremity no edema 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 no motor deficit General Appearance: Alert, Oriented X3, Cooperative HEENT: Atraumatic Cardiovascular: Regular rate, Normal S1, Normal S2 Abdomen: Normal bowel sounds, Soft Medications Current Medications Medications Dose Ordered Sig/Sita Route Start Time Stop Time Status Last Admin Dose Admin Vancomycin HCl 0 ml @ 0 mls/hr UD IV 04/19/25 18:30 Sodium Chloride 10 ml Q8HR IV 04/19/25 22:00 04/21/25 13:58 10 ML Docusate Sodium 100 mg BIDPRN PRN PO 04/19/25 18:30 Acetaminophen 650 mg Q6HP PRN PO 04/19/25 18:30 Acetaminophen/ Hydrocodone Bitart 1 tab Q4HP PRN PO 04/19/25 18:30 Ondansetron HCl 4 mg Q4HP PRN IV 04/19/25 18:30 Amlodipine Besylate 5 mg DAILY PO 04/20/25 10:00 04/20/25 10:52 5 MG Apixaban 5 mg DAILY PO 04/20/25 10:00 04/21/25 08:36 5 MG Multivit/Ca Carb/ B Cmplx/FA/Prenat 1 tab DAILY PO 04/20/25 10:00 04/21/25 08:35 1 TAB Furosemide 80 mg DAILY PO 04/20/25 10:00 04/21/25 08:36 80 MG Ceftriaxone Sodium/Dextrose 50 ml @ 50 mls/hr DAILY IV 04/21/25 10:00 04/21/25 08:37 50 MLS/HR Sevelamer HCl 800 mg TIDWM PO 04/20/25 18:00 04/21/25 17:35 800 MG Patient Own Medication 420 mg TIDWM PO 04/21/25 18:00 04/21/25 17:35 420 MG Laboratory Results Laboratory Tests 04/21/25 05:56 Chemistry Test 04/21/25 05:56 Albumin 4.2 g/dL (3.2-4.8) Calcium Level 9.4 mg/dL (8.7-10.4) Total Protein 7.3 g/dL (5.7-8.2) LFT Test 04/21/25 05:56 Alanine Aminotransferase (ALT) 25 U/L (7-40) Alkaline Phosphatase 111 U/L (46-116) Aspartate Amino Transferase (AST) 11 U/L (13-40) L Total Bilirubin 0.2 mg/dL (0.2-1.0) Microbiology Microbiology Date/Time Source Procedure Growth Status 04/19/25 23:21 Nose MRSA Screen - Final Complete Assessment/Plan Assessment/Plan 4-year-old male with a known history of hypertension, end-stage renal disease on hemodialysis, who initially present with the hospital with a right patient was status post extraction of one tooth one month ago found to have 1. Right facial mass/abscess 2. End-stage renal disease on hemodialysis 3. Hypotension -dialysis per renal, continue current IV antibiotics, infectious disease consultation -patient may need higher level of care for ENT evaluation and maxillofacial surgeon evaluation. Plan discussed with: Patient My Orders Orders - DALJIT SHERWOOD MD Procedure Category Date Status Time * Infectious [place]- Dr. CONS 04/21/25 Transmitted K Pete 12:26 (Nf) Ferric Citrate PHA 04/21/25 In Process (Auryxia) 18:00 * Customer Advocacy Manager CONS 04/21/25 Transmitted Consult Date of Service: Apr 21, 2025 Billing Provider: DALJIT SHERWOOD MD Common Visit Codes: [id number] INP/OBS CARE(MOD) DALJIT SHERWOOD MD Apr 21, 2025 19:15
[2025-04-22] VITALS (7 sets, daily range): BP systolic 139–150; BP diastolic 76–93; PULSE 81–101; RESP 16–22; TEMP 98.3–98.6; O2SAT 94–99
[2025-04-22 06:16] LABS: Hemoglobin 12.1 g/dL (13.5-17.5)
[2025-04-22 06:18] LABS: Hematocrit 34.5 % (41.0-53.0); Mean Corpuscular Hemoglobin 35.6 pg (28.0-32.0); Mean Corpuscular Volume 101.8 fL (80.0-100.0); Nucleated Red Blood Cells % 0.0 %
[2025-04-22 06:31] LABS: Alanine Aminotransferase 25 U/L (7-40); Albumin 4.5 g/dL (3.2-4.8); Alkaline Phosphatase 100 U/L (46-116); Anion Gap 12 (5-15); BUN/Creatinine Ratio 4.9 (10.0-20.0); Calcium 9.7 mg/dL (8.7-10.4); Carbon Dioxide 26 mmol/L (20-31); Chloride 99 mmol/L (98-107); Glucose 97 mg/dL (74-106); Potassium 4.3 mmol/L (3.5-5.1); Sodium 137 mmol/L (136-145); Total Protein 7.8 g/dL (5.7-8.2)
[2025-04-22 06:50] LABS: Bilirubin, Total 0.2 mg/dL (0.2-1.0); Blood Urea Nitrogen 65 mg/dL (9-23)
[2025-04-22] MEDS ORDERED: SEVE800T10 PO (10:57)
[2025-04-22] MEDS: SEVELAMER 800 MG TAB PO SCH (12:24)
--- NOTE | 2025-04-22 17:18 | DVHPN2 ---
Progress Note - Dictate Date Seen: Apr 22, 2025 Has the PT tested + for MRSA If YES, has PT been informed?: No Medical Necessity Reason Pt with a Central, PICC or Fol: No Subjective Patient states mild tenderness right cheek but not much vital signs Vital Sign Date Time Temp Pulse Resp B/P (MAP) Pulse Ox O2 Delivery O2 Flow Rate FiO2 04/22/25 17:04 98.5 86 16 139/79 (99) 96 98.5 04/22/25 08:00 Room Air* 0 21 Total Intake and Output 04/21/25 04/21/25 04/22/25 15:00 23:00 07:00 Intake Total 50 ml 820 ml 800 ml Balance 50 ml 820 ml 800 ml medications Current Medications Medications Dose Ordered Sig/Sita Route Start Time Stop Time Status Last Admin Dose Admin Vancomycin HCl 0 ml @ 0 mls/hr UD IV 04/19/25 18:30 Sodium Chloride 10 ml Q8HR IV 04/19/25 22:00 04/22/25 14:00 10 ML Docusate Sodium 100 mg BIDPRN PRN PO 04/19/25 18:30 Acetaminophen 650 mg Q6HP PRN PO 04/19/25 18:30 Acetaminophen/ Hydrocodone Bitart 1 tab Q4HP PRN PO 04/19/25 18:30 Ondansetron HCl 4 mg Q4HP PRN IV 04/19/25 18:30 Amlodipine Besylate 5 mg DAILY PO 04/20/25 10:00 04/22/25 09:19 5 MG Apixaban 5 mg DAILY PO 04/20/25 10:00 04/21/25 08:36 5 MG Multivit/Ca Carb/ B Cmplx/FA/Prenat 1 tab DAILY PO 04/20/25 10:00 04/22/25 09:19 1 TAB Furosemide 80 mg DAILY PO 04/20/25 10:00 04/22/25 09:20 80 MG Ceftriaxone Sodium/Dextrose 50 ml @ 50 mls/hr DAILY IV 04/21/25 10:00 04/22/25 09:18 50 MLS/HR Patient Own Medication 420 mg TIDWM PO 04/21/25 18:00 04/22/25 12:25 420 MG Sevelamer HCl 1,600 mg TIDWM PO 04/22/25 12:00 04/22/25 12:24 1,600 MG objective HEENT: No evidence of JVD, no oral ulcers. Swelling and induration in the right upper check no skin erythema Pulmonary: Lungs are clear on auscultation bilaterally Cardiovascular S1-S2, no S3 or S4 Abdomen: Bowel sounds positive, soft no rebound tenderness Skin: No rash Neurological: Alert, oriented, no focal weakness Av fistula positive bruit and thrill laboratory and microbiology Laboratory Tests 04/22/25 05:43 Test 04/22/25 05:43 Range/Units Serum Glucose 97 74-106 mg/dL Assessment/Plan Assessment: End-stage kidney disease on hemodialysis Right side of the face inflammation with possible abscess Right facial cellulitis Hypertension Plan/Recommendation: Continue dialysis Monday Awaiting transfer to higher levels of care Continue with the IV antibiotics, renally dosed Patient needs maxillofacial surgeon or ENT consultation MRI results reviewed Blood pressure control. Continue with Renvela Plan discussed with: Patient, Spouse AUBREE HENDRICKSON MD Apr 22, 2025 17:18
--- NOTE | 2025-04-22 18:36 | DVHPN2 ---
Subjective Patient is afebrile denies any complaints, social science professor has been working on arrangement of higher level of care so that patient can be evaluated by ENT/maxillofacial surgeon for right facial mass/abscess. Reviewed: Care Plan, H&P, Labs, Medications, Previous Orders, Radiology Changes from previous H/P or p: No Changes General: Per HPI Objective Vitals Vital Signs Date Time Temp Pulse Resp B/P (MAP) Pulse Ox O2 Delivery O2 Flow Rate FiO2 04/22/25 17:04 98.5 86 16 139/79 (99) 96 98.5 04/22/25 08:00 Room Air* 0 21 Intake/Output Intake and Output 04/22/25 07:00 Intake Total 1670 ml Balance 1670 ml Intake Oral 1620 ml IV Total 50 ml # Voids 7 # Bowel Movements 1 Exam HEENT pupils are reactive Neck is supple CV is S1-S2 regular rate and rhythm Respiratory are clear GI positive posterior bowel sound Extremity no 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 General Appearance: Alert, Oriented X3, Cooperative HEENT: Atraumatic Cardiovascular: Regular rate, Normal S1, Normal S2 Abdomen: Normal bowel sounds, Soft Medications Current Medications Medications Dose Ordered Sig/Sita Route Start Time Stop Time Status Last Admin Dose Admin Vancomycin HCl 0 ml @ 0 mls/hr UD IV 04/19/25 18:30 Sodium Chloride 10 ml Q8HR IV 04/19/25 22:00 04/22/25 14:00 10 ML Docusate Sodium 100 mg BIDPRN PRN PO 04/19/25 18:30 Acetaminophen 650 mg Q6HP PRN PO 04/19/25 18:30 Acetaminophen/ Hydrocodone Bitart 1 tab Q4HP PRN PO 04/19/25 18:30 Ondansetron HCl 4 mg Q4HP PRN IV 04/19/25 18:30 Amlodipine Besylate 5 mg DAILY PO 04/20/25 10:00 04/22/25 09:19 5 MG Apixaban 5 mg DAILY PO 04/20/25 10:00 04/21/25 08:36 5 MG Multivit/Ca Carb/ B Cmplx/FA/Prenat 1 tab DAILY PO 04/20/25 10:00 04/22/25 09:19 1 TAB Furosemide 80 mg DAILY PO 04/20/25 10:00 04/22/25 09:20 80 MG Ceftriaxone Sodium/Dextrose 50 ml @ 50 mls/hr DAILY IV 04/21/25 10:00 04/22/25 09:18 50 MLS/HR Patient Own Medication 420 mg TIDWM PO 04/21/25 18:00 04/22/25 18:06 420 MG Sevelamer HCl 1,600 mg TIDWM PO 04/22/25 12:00 04/22/25 18:05 1,600 MG Laboratory Results Laboratory Tests 04/22/25 05:43 Chemistry Test 04/22/25 05:43 Albumin 4.5 g/dL (3.2-4.8) Calcium Level 9.7 mg/dL (8.7-10.4) Total Protein 7.8 g/dL (5.7-8.2) LFT Test 04/22/25 05:43 Alanine Aminotransferase (ALT) 25 U/L (7-40) Alkaline Phosphatase 100 U/L (46-116) Aspartate Amino Transferase (AST) 14 U/L (13-40) Total Bilirubin 0.2 mg/dL (0.2-1.0) Microbiology Microbiology Date/Time Source Procedure Growth Status 04/19/25 23:21 Nose MRSA Screen - Final Complete Assessment/Plan Assessment/Plan 44-year-old male with a known history of hypertension, end-stage renal disease on hemodialysis, who initially present with the hospital with a right patient was status post extraction of one tooth one month ago found to have 1. Right facial mass/abscess 2. End-stage renal disease on hemodialysis 3. Hypotension -dialysis per renal, continue current IV antibiotics, infectious disease consultation -patient may need higher level of care for ENT evaluation and maxillofacial surgeon evaluation. Plan discussed with: Patient My Orders Orders - DALJIT SHERWOOD MD Procedure Category Date Status Time Sevelamer (Renagel) PHA 04/22/25 In Process 12:00 Date of Service: Apr 22, 2025 Billing Provider: DALJIT SHERWOOD MD Common Visit Codes: [id number] INP/OBS CARE(MOD) DALJIT SHERWOOD MD Apr 22, 2025 18:36
[2025-04-23 05:00] VITALS: BP 140/77; PULSE 75; RESP 17; TEMP 97.7; O2SAT 96
[2025-04-23 06:28] LABS: Hematocrit 33.7 % (41.0-53.0); Hemoglobin 11.6 g/dL (13.5-17.5); Mean Corpuscular Hemoglobin 35.3 pg (28.0-32.0); Mean Corpuscular Volume 102.2 fL (80.0-100.0); Nucleated Red Blood Cells % 0.1 %
[2025-04-23 06:37] LABS: Alanine Aminotransferase 21 U/L (7-40); Alkaline Phosphatase 105 U/L (46-116); Anion Gap 15 (5-15); BUN/Creatinine Ratio 6.1 (10.0-20.0); Calcium 10.2 mg/dL (8.7-10.4); Carbon Dioxide 25 mmol/L (20-31); Chloride 100 mmol/L (98-107); Glucose 98 mg/dL (74-106); Potassium 4.8 mmol/L (3.5-5.1); Sodium 140 mmol/L (136-145); Total Protein 6.9 g/dL (5.7-8.2)
[2025-04-23 06:38] LABS: Albumin 4.0 g/dL (3.2-4.8)
[2025-04-23 06:45] LABS: Bilirubin, Total 0.2 mg/dL (0.2-1.0)
[2025-04-23 06:51] LABS: Blood Urea Nitrogen 94 mg/dL (9-23)
[2025-04-23] MEDS ORDERED: SODIUM CHL 0.9% 1000 ML BAG XX ONE (07:00)
[2025-04-23 08:00] VITALS: PULSE 91; RESP 18; O2SAT 99
[2025-04-23 08:47] LABS: Iron 93.0 ug/dL (65-175)
[2025-04-23 09:00] VITALS: BP 127/88; PULSE 80; RESP 16; TEMP 97.9; O2SAT 94
[2025-04-23 09:01] LABS: Total Iron Binding Capacity 220.0 ug/dL (250-425)
[2025-04-23 13:30] VITALS: BP 143/88; PULSE 80; RESP 18; TEMP 98.2; O2SAT 99
--- NOTE | 2025-04-23 15:46 | DVHPN2 ---
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 Reviewed: Care Plan, H&P, Labs, Medications, Previous Orders, Radiology Changes from previous H/P or p: No Changes General: Per HPI Objective Vitals Vital Signs Date Time Temp Pulse Resp B/P (MAP) Pulse Ox O2 Delivery O2 Flow Rate FiO2 04/23/25 13:30 98.2 80 18 143/88 (106) 99 98.2 04/23/25 08:00 Room Air* 0 21 Intake/Output Intake and Output 04/23/25 07:00 Intake Total 1170 ml Balance 1170 ml Intake Oral 1120 ml IV Total 50 ml # Voids 8 # Bowel Movements 5 Exam HEENT pupils are reactive Neck is supple CV is S1-S2 regular rate and rhythm Respiratory are clear GI positive posterior bowel sound Extremity no edema [employer] no motor deficit General Appearance: Alert, Oriented X3, Cooperative HEENT: Atraumatic Cardiovascular: Regular rate, Normal S1, Normal S2 Abdomen: Normal bowel sounds, Soft Medications Current Medications Medications Dose Ordered Sig/Sita Route Start Time Stop Time Status Last Admin Dose Admin Vancomycin HCl 0 ml @ 0 mls/hr UD IV 04/19/25 18:30 Sodium Chloride 10 ml Q8HR IV 04/19/25 22:00 04/23/25 08:13 10 ML Docusate Sodium 100 mg BIDPRN PRN PO 04/19/25 18:30 Acetaminophen 650 mg Q6HP PRN PO 04/19/25 18:30 Acetaminophen/ Hydrocodone Bitart 1 tab Q4HP PRN PO 04/19/25 18:30 Ondansetron HCl 4 mg Q4HP PRN IV 04/19/25 18:30 Amlodipine Besylate 5 mg DAILY PO 04/20/25 10:00 04/22/25 09:19 5 MG Apixaban 5 mg DAILY PO 04/20/25 10:00 04/21/25 08:36 5 MG Multivit/Ca Carb/ B Cmplx/FA/Prenat 1 tab DAILY PO 04/20/25 10:00 04/23/25 08:10 1 TAB Furosemide 80 mg DAILY PO 04/20/25 10:00 04/23/25 08:11 80 MG Ceftriaxone Sodium/Dextrose 50 ml @ 50 mls/hr DAILY IV 04/21/25 10:00 04/23/25 08:12 50 MLS/HR Patient Own Medication 420 mg TIDWM PO 04/21/25 18:00 04/23/25 08:13 420 MG Sevelamer HCl 1,600 mg TIDWM PO 04/22/25 12:00 04/23/25 08:10 1,600 MG Laboratory Results Laboratory Tests 04/23/25 05:37 Chemistry Test 04/23/25 05:37 Albumin 4.0 g/dL (3.2-4.8) Calcium Level 10.2 mg/dL (8.7-10.4) Total Protein 6.9 g/dL (5.7-8.2) LFT Test 04/23/25 05:37 Alanine Aminotransferase (ALT) 21 U/L (7-40) Alkaline Phosphatase 105 U/L (46-116) Aspartate Amino Transferase (AST) 13 U/L (13-40) Total Bilirubin 0.2 mg/dL (0.2-1.0) Microbiology Microbiology Date/Time Source Procedure Growth Status 04/19/25 23:21 Nose MRSA Screen - Final Complete Assessment/Plan Assessment/Plan 44-year-old male with a known history of hypertension, end-stage renal disease on hemodialysis, who initially present with the hospital with a right patient was status post extraction of one tooth one month ago found to have 1. Right facial mass/abscess 2. End-stage renal disease on hemodialysis 3. Hypertension 4. 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 -dialysis per renal, continue current IV antibiotics, infectious disease consultation -patient may need higher level of care for ENT evaluation and maxillofacial surgeon evaluation. Plan discussed with: Patient Date of Service: Apr 23, 2025 Billing Provider: DALJIT SHERWOOD MD Common Visit Codes: [id number] INP/OBS CARE(MOD) DALJIT SHERWOOD MD Apr 23, 2025 15:46
--- NOTE | 2025-04-23 16:10 | DVHPN2 ---
Progress Note - Dictate Date Seen: Apr 23, 2025 Has the PT tested + for MRSA If YES, has PT been informed?: No Medical Necessity Reason Pt with a Central, PICC or Fol: No Subjective Patient feels well, undergoing hemodialysis vital signs Vital Sign Date Time Temp Pulse Resp B/P (MAP) Pulse Ox O2 Delivery O2 Flow Rate FiO2 04/23/25 13:30 98.2 80 18 143/88 (106) 99 98.2 04/23/25 08:00 Room Air* 0 21 Total Intake and Output 04/22/25 04/22/25 04/23/25 15:00 23:00 07:00 Intake Total 50 ml 720 ml 400 ml Balance 50 ml 720 ml 400 ml medications Current Medications Medications Dose Ordered Sig/Sita Route Start Time Stop Time Status Last Admin Dose Admin Vancomycin HCl 0 ml @ 0 mls/hr UD IV 04/19/25 18:30 Sodium Chloride 10 ml Q8HR IV 04/19/25 22:00 04/23/25 08:13 10 ML Docusate Sodium 100 mg BIDPRN PRN PO 04/19/25 18:30 Acetaminophen 650 mg Q6HP PRN PO 04/19/25 18:30 Acetaminophen/ Hydrocodone Bitart 1 tab Q4HP PRN PO 04/19/25 18:30 Ondansetron HCl 4 mg Q4HP PRN IV 04/19/25 18:30 Amlodipine Besylate 5 mg DAILY PO 04/20/25 10:00 04/22/25 09:19 5 MG Apixaban 5 mg DAILY PO 04/20/25 10:00 04/21/25 08:36 5 MG Multivit/Ca Carb/ B Cmplx/FA/Prenat 1 tab DAILY PO 04/20/25 10:00 04/23/25 08:10 1 TAB Furosemide 80 mg DAILY PO 04/20/25 10:00 04/23/25 08:11 80 MG Ceftriaxone Sodium/Dextrose 50 ml @ 50 mls/hr DAILY IV 04/21/25 10:00 04/23/25 08:12 50 MLS/HR Patient Own Medication 420 mg TIDWM PO 04/21/25 18:00 04/23/25 08:13 420 MG Sevelamer HCl 1,600 mg TIDWM PO 04/22/25 12:00 04/23/25 08:10 1,600 MG objective HEENT: No evidence of JVD, no oral ulcers. Swelling and induration in the right upper check no skin erythema Pulmonary: Lungs are clear on auscultation bilaterally Cardiovascular S1-S2, no S3 or S4 Abdomen: Bowel sounds positive, soft no rebound tenderness Skin: No rash Neurological: Alert, oriented, no focal weakness Av fistula positive bruit and thrill laboratory and microbiology Laboratory Tests 04/23/25 05:37 Test 04/23/25 05:37 Range/Units Serum Glucose 98 74-106 mg/dL Assessment/Plan Assessment: End-stage kidney disease on hemodialysis Right side of the face inflammation with possible abscess Right facial cellulitis Hypertension Plan/Recommendation: Continue dialysis Monday Awaiting transfer to higher levels of care Continue with the IV antibiotics, renally dosed Patient needs maxillofacial surgeon or ENT consultation MRI results reviewed Blood pressure control. Continue with Renvela Plan discussed with: Patient AUBREE HENDRICKSON MD Apr 23, 2025 16:10
[2025-04-23 16:30] VITALS: BP 158/80; PULSE 79; RESP 18; TEMP 97.5; O2SAT 95
[2025-04-23] MEDS: VANCOMYCIN 500mg/100mL 100 ML IV ONE (17:31)
[2025-04-23 21:00] VITALS: BP 164/95; PULSE 99; RESP 20; TEMP 99.4; O2SAT 100
[2025-04-23] MEDS: TAMSULOSIN HYDROCHLORIDE 0.4 MG CAP PO ONE (21:59)
[2025-04-24] VITALS (7 sets, daily range): BP systolic 135–155; BP diastolic 78–89; PULSE 76–101; RESP 18–20; TEMP 97–98.4; O2SAT 97–100
[2025-04-24 06:46] LABS: Nucleated Red Blood Cells % 0.0 %
[2025-04-24 06:50] LABS: Hematocrit 34.2 % (41.0-53.0); Hemoglobin 11.9 g/dL (13.5-17.5); Mean Corpuscular Hemoglobin 35.3 pg (28.0-32.0); Mean Corpuscular Volume 101.5 fL (80.0-100.0)
[2025-04-24 06:58] LABS: Alanine Aminotransferase 26 U/L (7-40); Albumin 4.5 g/dL (3.2-4.8); Alkaline Phosphatase 89 U/L (46-116); Anion Gap 16 (5-15); BUN/Creatinine Ratio 6.0 (10.0-20.0); Calcium 10.1 mg/dL (8.7-10.4); Carbon Dioxide 25 mmol/L (20-31); Glucose 97 mg/dL (74-106); Potassium 4.3 mmol/L (3.5-5.1); Sodium 136 mmol/L (136-145); Total Protein 7.8 g/dL (5.7-8.2)
[2025-04-24 07:08] LABS: Bilirubin, Total 0.3 mg/dL (0.2-1.0); Chloride 95 mmol/L (98-107)
[2025-04-24 07:09] LABS: Blood Urea Nitrogen 89 mg/dL (9-23)
[2025-04-24] MEDS ORDERED: IOHEXOL 300 MG/ML 100ML BOTTLE IJ ONE (14:02)
--- NOTE | 2025-04-24 14:39 | DVH ---
CT MAXILLOFACIAL WITH Indication: Facial Abcess EXAM DATE: 04/24/2025 01:56 PM COMPARISON: CT MAXILLOFACIAL WITHOUT on DOS: 04/19/25 TECHNIQUE: CT of the maxillofacial bones with intravenous contrast. Coronal and sagittal reformats ob tained. RADIATION DOSE: CTDIvol: 66.95 mGy, DLP: 1580.87 mGy*cm FINDINGS: Redemonstration of complex lesion/collection along the anterior aspect of the right masseter musculat ure measuring 1.7 x 1.7 cm in the axial plane, similar to the previous examination. There is surroun ding inflammatory stranding and edema. Orbits, retrobulbar spaces unremarkable. Mastoids are well pneumatized. Mucosal thickening of the ethmoids and sphenoids. Right maxillary sin us air-fluid level and mucosal thickening. Left maxillary sinus mucosal thickening. Right cervical jugulodigastric lymph nodes measuring up to 9 mm. IMPRESSION: Complex lesion/ collection anterior to the right masseter musculature measuring 1.7 cm, similar to th e previous examination. Surrounding soft tissue edema stranding. Differential considerations includ e phlegmonous/abscess, soft tissue mass. Follow-up to resolution. Adjacent right facial region soft tissue stranding likely representing cellulitic changes. Paranasal sinus disease.
--- NOTE | 2025-04-24 16:11 | DVHPN2 ---
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 Reviewed: Care Plan, H&P, Labs, Medications, Previous Orders, Radiology Changes from previous H/P or p: No Changes General: Per HPI Objective Vitals Vital Signs Date Time Temp Pulse Resp B/P (MAP) Pulse Ox O2 Delivery O2 Flow Rate FiO2 04/24/25 13:24 97.9 79 18 135/82 (99) 100 97.9 04/24/25 08:00 Room Air* 0 21 Intake/Output Intake and Output 04/24/25 07:00 Intake Total 2000 ml Balance 2000 ml Intake Oral 1850 ml IV Total 150 ml # Voids 8 # Bowel Movements 1 Exam HEENT pupils are reactive Neck is supple CV is S1-S2 regular rate and rhythm Respiratory are clear GI positive posterior bowel sound 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 General Appearance: Alert, Oriented X3, Cooperative HEENT: Atraumatic Cardiovascular: Regular rate, Normal S1, Normal S2 Abdomen: Normal bowel sounds, Soft Medications Current Medications Medications Dose Ordered Sig/Sita Route Start Time Stop Time Status Last Admin Dose Admin Vancomycin HCl 0 ml @ 0 mls/hr UD IV 04/19/25 18:30 Sodium Chloride 10 ml Q8HR IV 04/19/25 22:00 04/24/25 14:00 10 ML Docusate Sodium 100 mg BIDPRN PRN PO 04/19/25 18:30 Acetaminophen 650 mg Q6HP PRN PO 04/19/25 18:30 Acetaminophen/ Hydrocodone Bitart 1 tab Q4HP PRN PO 04/19/25 18:30 Ondansetron HCl 4 mg Q4HP PRN IV 04/19/25 18:30 Amlodipine Besylate 5 mg DAILY PO 04/20/25 10:00 04/24/25 09:43 5 MG Multivit/Ca Carb/ B Cmplx/FA/Prenat 1 tab DAILY PO 04/20/25 10:00 04/24/25 09:41 1 TAB Furosemide 80 mg DAILY PO 04/20/25 10:00 04/24/25 09:42 80 MG Ceftriaxone Sodium/Dextrose 50 ml @ 50 mls/hr DAILY IV 04/21/25 10:00 04/24/25 09:40 50 MLS/HR Patient Own Medication 420 mg TIDWM PO 04/21/25 18:00 04/24/25 12:24 420 MG Sevelamer HCl 1,600 mg TIDWM PO 04/22/25 12:00 04/24/25 12:23 1,600 MG Tamsulosin HCl 0.4 mg QPM PO 04/24/25 18:00 Laboratory Results Laboratory Tests 04/24/25 05:43 Chemistry Test 04/24/25 05:43 Albumin 4.5 g/dL (3.2-4.8) Calcium Level 10.1 mg/dL (8.7-10.4) Total Protein 7.8 g/dL (5.7-8.2) LFT Test 04/24/25 05:43 Alanine Aminotransferase (ALT) 26 U/L (7-40) Alkaline Phosphatase 89 U/L (46-116) Aspartate Amino Transferase (AST) 16 U/L (13-40) Total Bilirubin 0.3 mg/dL (0.2-1.0) Microbiology Microbiology Date/Time Source Procedure Growth Status 04/19/25 23:21 Nose MRSA Screen - Final Complete Assessment/Plan Assessment/Plan 44-year-old male with a known history of hypertension, end-stage renal disease on hemodialysis, who initially present with the hospital with a right patient was status post extraction of one tooth one month ago found to have 1. Right facial mass/abscess 2. End-stage renal disease on hemodialysis 3. Hypertension 4. 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 -dialysis per renal, continue current IV antibiotics, infectious disease consultation -[facility] still remaining of the records, the might give answer regarding acceptance of this patient by tomorrow. Service currently on board. Plan discussed with: Patient My Orders Orders - DALJIT SHERWOOD MD Procedure Category Date Status Time Tamsulosin PHA 04/24/25 In Process Hydrochloride (Flomax) 18:[address] 04/24/25 Resulted 13:20 Imaging Transfer ORDERS 04/24/25 Transmitted Request 15:31 Date of Service: Apr 24, 2025 Billing Provider: DALJIT SHERWOOD MD Common Visit Codes: [id number] INP/OBS CARE(MOD) DALJIT SHERWOOD MD Apr 24, 2025 16:11
--- NOTE | 2025-04-24 17:06 | DVHPN2 ---
Progress Note - Dictate Date Seen: Apr 24, 2025 Has the PT tested + for MRSA If YES, has PT been informed?: No Medical Necessity Reason Pt with a Central, PICC or Fol: No Subjective Patient feels better. vital signs Vital Sign Date Time Temp Pulse Resp B/P (MAP) Pulse Ox O2 Delivery O2 Flow Rate FiO2 04/24/25 13:24 97.9 79 18 135/82 (99) 100 97.9 04/24/25 08:00 Room Air* 0 21 Total Intake and Output 04/23/25 04/23/25 04/24/25 15:00 23:00 07:00 Intake Total 50 ml 900 ml 1050 ml Balance 50 ml 900 ml 1050 ml medications Current Medications Medications Dose Ordered Sig/Sita Route Start Time Stop Time Status Last Admin Dose Admin Vancomycin HCl 0 ml @ 0 mls/hr UD IV 04/19/25 18:30 Sodium Chloride 10 ml Q8HR IV 04/19/25 22:00 04/24/25 14:00 10 ML Docusate Sodium 100 mg BIDPRN PRN PO 04/19/25 18:30 Acetaminophen 650 mg Q6HP PRN PO 04/19/25 18:30 Acetaminophen/ Hydrocodone Bitart 1 tab Q4HP PRN PO 04/19/25 18:30 Ondansetron HCl 4 mg Q4HP PRN IV 04/19/25 18:30 Amlodipine Besylate 5 mg DAILY PO 04/20/25 10:00 04/24/25 09:43 5 MG Multivit/Ca Carb/ B Cmplx/FA/Prenat 1 tab DAILY PO 04/20/25 10:00 04/24/25 09:41 1 TAB Furosemide 80 mg DAILY PO 04/20/25 10:00 04/24/25 09:42 80 MG Ceftriaxone Sodium/Dextrose 50 ml @ 50 mls/hr DAILY IV 04/21/25 10:00 04/24/25 09:40 50 MLS/HR Patient Own Medication 420 mg TIDWM PO 04/21/25 18:00 04/24/25 12:24 420 MG Sevelamer HCl 1,600 mg TIDWM PO 04/22/25 12:00 04/24/25 12:23 1,600 MG Tamsulosin HCl 0.4 mg QPM PO 04/24/25 18:00 objective HEENT: No evidence of JVD, no oral ulcers. Swelling and induration in the right upper check no skin erythema Pulmonary: Lungs are clear on auscultation bilaterally Cardiovascular S1-S2, no S3 or S4 Abdomen: Bowel sounds positive, soft no rebound tenderness Skin: No rash Neurological: Alert, oriented, no focal weakness Av fistula positive bruit and thrill laboratory and microbiology Laboratory Tests 04/24/25 05:43 Test 04/24/25 05:43 Range/Units Serum Glucose 97 74-106 mg/dL Assessment/Plan Assessment: End-stage kidney disease on hemodialysis Right side of the face inflammation with possible abscess Right facial cellulitis Hypertension Plan/Recommendation: Continue dialysis Monday, if staffing allows we will repeat dialysis today 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 Continue with Renvela Dietary Evaluation Review Comments: 1. follow a renal specif diet with 65g protein 2. increase dialysis hours Expected Outcomes/Goals: less uremic syndrome, decrease body wt. Plan discussed with: Patient AUBREE HENDRICKSON MD Apr 24, 2025 17:06
[2025-04-24] MEDS: TAMSULOSIN HYDROCHLORIDE 0.4 MG CAP PO SCH (18:23)
[2025-04-25] VITALS (9 sets, daily range): BP systolic 120–166; BP diastolic 68–95; PULSE 68–92; RESP 18–20; TEMP 97.3–98.4; O2SAT 95–100
[2025-04-25] MEDS ORDERED: SODIUM CHL 0.9% 1000 ML BAG XX ONE (07:00)
[2025-04-25] MEDS: SEVELAMER 800 MG TAB PO ONE (13:16)
--- NOTE | 2025-04-25 15:13 | DVHPN2 ---
Progress Note - Dictate Date Seen: Apr 25, 2025 Has the PT tested + for MRSA If YES, has PT been informed?: No Medical Necessity Reason Pt with a Central, PICC or Fol: No Subjective Patient feels better. vital signs Vital Sign Date Time Temp Pulse Resp B/P (MAP) Pulse Ox O2 Delivery O2 Flow Rate FiO2 04/25/25 09:00 97.5 74 20 120/75 (90) 100 97.5 04/25/25 07:55 Room Air* 0 21 Total Intake and Output 04/24/25 04/24/25 04/25/25 15:00 23:00 07:00 Intake Total 750 ml 800 ml Balance 750 ml 800 ml medications Current Medications Medications Dose Ordered Sig/Sita Route Start Time Stop Time Status Last Admin Dose Admin Vancomycin HCl 0 ml @ 0 mls/hr UD IV 04/19/25 18:30 Sodium Chloride 10 ml Q8HR IV 04/19/25 22:00 04/25/25 11:54 10 ML Docusate Sodium 100 mg BIDPRN PRN PO 04/19/25 18:30 Acetaminophen 650 mg Q6HP PRN PO 04/19/25 18:30 Acetaminophen/ Hydrocodone Bitart 1 tab Q4HP PRN PO 04/19/25 18:30 Ondansetron HCl 4 mg Q4HP PRN IV 04/19/25 18:30 Amlodipine Besylate 5 mg DAILY PO 04/20/25 10:00 04/24/25 09:43 5 MG Multivit/Ca Carb/ B Cmplx/FA/Prenat 1 tab DAILY PO 04/20/25 10:00 04/25/25 11:47 1 TAB Furosemide 80 mg DAILY PO 04/20/25 10:00 04/24/25 09:42 80 MG Ceftriaxone Sodium/Dextrose 50 ml @ 50 mls/hr DAILY IV 04/21/25 10:00 04/25/25 11:47 50 MLS/HR Patient Own Medication 420 mg TIDWM PO 04/21/25 18:00 04/25/25 13:18 420 MG Sevelamer HCl 1,600 mg TIDWM PO 04/22/25 12:00 04/25/25 11:47 1,600 MG Tamsulosin HCl 0.4 mg QPM PO 04/24/25 18:00 04/24/25 18:23 0.4 MG objective HEENT: No evidence of JVD, no oral ulcers. Swelling and induration in the right upper check no skin erythema Pulmonary: Lungs are clear on auscultation bilaterally Cardiovascular S1-S2, no S3 or S4 Abdomen: Bowel sounds positive, soft no rebound tenderness Skin: No rash Neurological: Alert, oriented, no focal weakness Av fistula positive bruit and thrill laboratory and microbiology Laboratory Tests 04/25/25 08:25 04/24/25 05:43 Test 04/24/25 05:43 Range/Units Serum Glucose 97 74-106 mg/dL Assessment/Plan Assessment: End-stage kidney disease on hemodialysis Right side of the face inflammation with possible abscess Right facial cellulitis Hypertension Plan/Recommendation: Dialysis was completed today with 3 L UF. Awaiting transfer to higher levels of care Continue with the IV antibiotics, renally dosed CT scan was repeated today Patient needs maxillofacial surgeon or ENT consultation MRI results reviewed Blood pressure control. Continue with Renvela Dietary Evaluation Review Comments: 1. follow a renal specif diet with 65g protein 2. increase dialysis hours Expected Outcomes/Goals: less uremic syndrome, decrease body wt. Plan discussed with: Patient AUBREE HENDRICKSON MD Apr 25, 2025 15:13
--- NOTE | 2025-04-25 16:23 | DVHPN2 ---
Subjective Clinically stable. Facial pain and discomfort is improving. Undergoing hemodialysis. Pending transferred to higher level of care for maxillofacial surgeon versus ENT surgery evaluation for possible abscess. Reviewed: Care Plan, H&P, Labs, Medications, Previous Orders, Radiology Changes from previous H/P or p: No Changes General: Per HPI Objective Vitals Vital Signs Date Time Temp Pulse Resp B/P (MAP) Pulse Ox O2 Delivery O2 Flow Rate FiO2 04/25/25 13:00 97.9 91 18 134/68 (90) 98 97.9 04/25/25 07:55 Room Air* 0 21 Intake/Output Intake and Output 04/25/25 07:00 Intake Total 1550 ml Balance 1550 ml Intake Oral 1500 ml IV Total 50 ml # Voids 10 # Bowel Movements 2 Exam Alert awake oriented x3. HEENT neck supple no JVD. Facial swelling has significantly improved. Oropharynx clear without any lesions or exudates. Heart regular rate rhythm S1-S2. Lungs fair air movement without rales wheezes. Abdomen soft obese positive bowel sounds. Extremities no edema positive pulses. General Appearance: Alert, Oriented X3, Cooperative HEENT: Atraumatic Cardiovascular: Regular rate, Normal S1, Normal S2 Abdomen: Normal bowel sounds, Soft Medications Current Medications Medications Dose Ordered Sig/Sita Route Start Time Stop Time Status Last Admin Dose Admin Vancomycin HCl 0 ml @ 0 mls/hr UD IV 04/19/25 18:30 Sodium Chloride 10 ml Q8HR IV 04/19/25 22:00 04/25/25 11:54 10 ML Docusate Sodium 100 mg BIDPRN PRN PO 04/19/25 18:30 Acetaminophen 650 mg Q6HP PRN PO 04/19/25 18:30 Acetaminophen/ Hydrocodone Bitart 1 tab Q4HP PRN PO 04/19/25 18:30 Ondansetron HCl 4 mg Q4HP PRN IV 04/19/25 18:30 Amlodipine Besylate 5 mg DAILY PO 04/20/25 10:00 04/24/25 09:43 5 MG Multivit/Ca Carb/ B Cmplx/FA/Prenat 1 tab DAILY PO 04/20/25 10:00 04/25/25 11:47 1 TAB Furosemide 80 mg DAILY PO 04/20/25 10:00 04/24/25 09:42 80 MG Ceftriaxone Sodium/Dextrose 50 ml @ 50 mls/hr DAILY IV 04/21/25 10:00 04/25/25 11:47 50 MLS/HR Patient Own Medication 420 mg TIDWM PO 04/21/25 18:00 04/25/25 13:18 420 MG Sevelamer HCl 1,600 mg TIDWM PO 04/22/25 12:00 04/25/25 11:47 1,600 MG Tamsulosin HCl 0.4 mg QPM PO 04/24/25 18:00 04/24/25 18:23 0.4 MG Laboratory Results Laboratory Tests 04/24/25 05:43 04/25/25 08:25 Microbiology Microbiology Date/Time Source Procedure Growth Status 04/19/25 23:21 Nose MRSA Screen - Final Complete Assessment/Plan Assessment/Plan Did you current antibiotics as he is on for facial cellulitis and possible abscess. Seems his symptoms have significantly improved. Awaiting Infectious Disease recommendations. Otherwise continue dialysis. Continue to transferred to higher level of care. Further clinical management per clinical course. Discussed with the patient at length regarding expected length of stay, possible transfer and need for antibiotics. Patient has verbalized understanding of this and agree with the current care plan. Also discussed with the nurse at bedside regarding care plan. 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
--- NOTE | 2025-04-25 16:30 | DVHINCON2 ---
"Date of service: Apr 22, 2025 Family History: FHx: kidney failure G8 MOTHER Allergies: Coded Allergies: NO KNOWN ALLERGIES (Unverified , 04/04/24) Home Meds Active Scripts Rivaroxaban (Xarelto Tablet) 15 Mg Tb, 15 MG PO BID for 21 Days, #42 TAB Prov:BERT LOCKHART PAC 03/06/25 Reported Medications Sevelamer Carbonate (Sevelamer Carbonate) 800 Mg Tab, 800 MG PO, TAB 04/22/25 Tamsulosin Hcl (Tamsulosin Hcl) 0.4 Mg Cap, 1 CAP PO DAILY 04/19/25 Amlodipine Besylate (NORVASC TABLET) 5 Mg Tb, 1 TAB PO DAILY, #30 TAB 5 Refills 04/05/24 Calcium Carbonate-Cholecalcife (Calcium 500 +D 500-10 mg-Mcg) 1 Tab Tab, 1 TAB PO, TAB 04/05/24 B-Complex W/ C-Zn & Folic Acid (Dialyvite 800/Zinc) 800 Mg/Zinc Tab, 800 MG PO, TAB 04/05/24 B-Complex W/ C & Folic Acid (Elaina-Noah) Tab, 1 OR DAILY, TAB 04/05/24 Furosemide (Lasix) 80 Mg Tab, 1 TAB PO DAILY, #30 TAB 5 Refills 04/05/24 Ferric Citrate (Auryxia) 210 Mg Tab, 210 MG PO DAILY, TAB 04/05/24 Discontinued Reported Medications Apixaban Base (ELIQUIS) 5 Mg Tab, 5 MG PO DAILY, TAB 04/05/24 Current Medications Current Medications Medications (Trade) Dose Ordered Sig/Sita Route PRN Reason Start Time Stop Time Status Last Admin Tamsulosin HCl (Flomax) 0.4 mg QPM PO 04/24/25 18:00 04/24/25 18:23 Vital Signs Vital Signs Date Time Temp Pulse Resp B/P (MAP) Pulse Ox O2 Delivery O2 Flow Rate FiO2 04/25/25 13:00 97.9 91 18 134/68 (90) 98 97.9 04/25/25 07:55 Room Air* 0 21 Labs/Diagnostic Data Labs Test 04/25/25 08:25 04/24/25 05:43 04/23/25 05:37 04/21/25 13:19 Range/Units Creatinine 17.13 #*H 0.700-1.30 mg/dL Glomerular Filtration Rate Calc 3 >90 mL/min Random Vancomycin Level 19.4 H 5-10 ug/mL White Blood Count 6.8 4.4-10.8 10^3/uL Red Blood Count 3.37 L 4.5-5.90 10^6/uL Hemoglobin 11.9 L 13.5-17.5 g/dL Hematocrit 34.2 L 41.0-53.0 % Mean Corpuscular Volume 101.5 H 80.0-100.0 fL Mean Corpuscular Hemoglobin 35.3 H 28.0-32.0 pg Mean Corpuscular Hemoglobin Concent 34.7 32.0-36.0 g/dL Red Cell Distribution Width 13.7 11.8-14.3 % Platelet Count 230 140-450 10^3/uL Mean Platelet Volume 6.9 6.9-10.8 fL Neutrophils (%) (Auto) 71.8 37.0-80.0 % Lymphocytes (%) (Auto) 16.9 10.0-50.0 % Monocytes (%) (Auto) 8.4 0.0-12.0 % Eosinophils (%) (Auto) 2.6 0.0-7.0 % Basophils (%) (Auto) 0.3 0.0-2.0 % Neutrophils # (Auto) 4.9 1.6-8.6 10 ^3/uL Lymphocytes # (Auto) 1.1 0.4-5.4 10 ^3/uL Monocytes # (Auto) 0.6 0-1.3 10 ^3/uL Eosinophils # (Auto) 0.2 0-0.8 10 ^3/uL Basophils # (Auto) 0 0-0.2 10 ^3/uL Nucleated Red Blood Cells 0.0 % Sodium Level 136 136-145 mmol/L Potassium Level 4.3 3.5-5.1 mmol/L Chloride Level 95 L 98-107 mmol/L Carbon Dioxide Level 25 20-31 mmol/L Anion Gap 16 H 5-15 Blood Urea Nitrogen 89 *H 9-23 mg/dL BUN/Creatinine Ratio 6.0 L 10.0-20.0 Serum Glucose 97 74-106 mg/dL Calcium Level 10.1 8.7-10.4 mg/dL Total Bilirubin 0.3 0.2-1.0 mg/dL Aspartate Amino Transferase (AST) 16 13-40 U/L Alanine Aminotransferase (ALT) 26 7-40 U/L Alkaline Phosphatase 89 46-116 U/L Total Protein 7.8 5.7-8.2 g/dL Albumin 4.5 3.2-4.8 g/dL Iron Level 93 65-175 ug/dL Total Iron Binding Capacity 220 L 250-425 ug/dL Percent Iron Saturation 42.3 20-55 % Ferritin 206.0 22-322 ng/mL Hepatitis B Surface Antigen Negative Negative Test 04/19/25 18:58 04/19/25 11:27 Range/Units Erythrocyte Sedimentation Rate 63 H 0-20 mm/hr C-Reactive Protein High Sensitivity 0.49 <1.0 mg/dL Microbiology Date/Time Source Procedure Growth Status 04/19/25 23:21 Nose MRSA Screen - Final Complete Problems(with codes): (1) Septic shock (2) Facial cellulitis (3) ESRD (end stage renal disease) (4) Chronic deep vein thrombosis (DVT) of internal jugular vein (5) Sepsis (6) Abscess of face Plan/Recommendation ASSESSMENT AND PLAN: ID Problem List: \\-- Right facial cellulitis/possible abscess \\-- Advanced stage renal disease \\-- Hypertension \\-- Recent dental extraction \\-- Sinusitis Assessment This is a 44-year-old male with a past medical history of advanced stage renal disease and hypertension, presenting with new right facial swelling over the last 24 hours. Notable history includes recent dental extraction approximately one month ago. The swelling is non-tender and overlying the right cheek. No fevers or chills. No tobacco or drug use. Review of imaging (CT/MRI) demonstrates sinusitis and complex fluid collection/edema along the right face near the masseter, with a focal ovoid structure, possible abscess, and inflammatory/fatty components. Following three days of antibiotics (vancomycin, ceftriaxone), repeat CT showed reduction of the collection to 1.7 cm. Laboratory data: WBC 6.7, hemoglobin 13.9, platelets 253, sodium 134, BUN 46, creatinine 10.9. Abscess cannot be excluded; actinomyces considered as an etiology given the dental association. Plan: \\-- Continue vancomycin and ceftriaxone. \\-- Monitor for progression or improvement of facial cellulitis/abscess. \\-- Recommend evaluation by surgical team/ENT at a higher level of care for possible surgical intervention. \\-- If improvement, arrange ENT follow-up within 1-2 weeks. Consider at least 30 days of antibiotics as outpatient. \\-- Attempt to identify causative organism from the lesion; culture if possible. \\-- Screen for diabetes. \\-- Defer management of end stage renal disease to nephrology. Isolation Precautions: standard Assessment and plan was discussed with the patient as written above. Plan is subject to change pending incorporation of new incoming information/diagnostics. Updates may be added as addendum at the bottom (OR TOP) of this note. Thank you for the interesting consult. ID will continue to follow. Please contact Infectious Disease for any questions or concerns. Flaquito Freeman M.D. [facility] Ph: ? Teams text: [email or web address] \\ History: The patient's chart and medications were reviewed in detail and the patient was seen and examined. History obtained from: patient Mr. Canelo Llanes is a 44-year-old male with advanced stage renal disease and hypertension. He is presenting with right facial swelling over the past 24 hours, non-tender, located on the right cheek, following a dental extraction one month ago. No fevers or chills. No tobacco or drug use. He is on amlodipine, sevelamer, vitamin B, apixaban, Lasix, and ferrous sulfate. Review of recent imaging (CT/MRI) indicates right-sided maxillofacial edema and complex fluid collection/abscess adjacent to the right masseter, with features concerning for infectious etiology. Notably, after 3 days of antibiotics, repeat CT showed reduction in lesion size. Review of Systems: A complete 10-system review of systems was completed and negative except as noted in the HPI or here. ROS: -CONSTITUTIONAL: Denies weight loss, fever, and chills. -HEENT: Denies changes in vision and hearing. -RESPIRATORY: Denies shortness of breath and cough. -CV: Denies palpitations and chest pain. -GI: Denies abdominal pain, nausea, vomiting, and diarrhea. -: Denies dysuria and urinary frequency. -MSK: Denies myalgia and joint pain. -SKIN: Denies rash and pruritus. -NEUROLOGICAL: Denies headache and syncope. -PSYCHIATRIC: Denies recent changes in mood, anxiety, or depression. Past Medical History: Diagnosis | Date Advanced stage renal disease | Not specified Hypertension | Not specified Past Surgical History: History reviewed. No pertinent surgical history. Home Medications: Medication | Sig -Amlodipine | Dose, frequency not specified -Sevelamer | Dose, frequency not specified -Vitamin B | Dose, frequency not specified -Apixaban | Dose, frequency not specified -Lasix | Dose, frequency not specified -Ferrous sulfate | Dose, frequency not specified Allergies: No allergies discussed. Family History: Not discussed. Social History: -Tobacco use: Denied -Drug use: Denied -Alcohol use: Not discussed Other topics: Not discussed Social Determinants of Health: Not discussed. Objective: Vital Signs on Arrival: Temp: 98F BP: 102/84 Pulse: 82 Resp: 16 SpO2: 99% on room air Most Recent Vital Signs: Not further specified. Admission Weight: Not provided. Physical Exam: General: NAD Neck: Supple. No masses. HEENT: PERRL. Normal lids and conjunctiva. Moist mucous membranes. Oropharynx without lesions, exudates or excessive erythema. Normal appearance of the external aspects of the nose and ears. Heart: Regular rhythm, normal rate. No murmur. No lower extremity edema. Lungs: Normal respiratory effort. Clear to auscultation bilaterally. No wheezes. No crackles. Abdomen: Soft. Non-tender. Non-distended. No masses or abdominal hernia. Msk: No digital cyanosis. Normal strength and tone in all 4 limbs Skin: Warm and dry, no rashes. Right facial edema present, nontender. Neuro: Alert. No facial droop or slurred speech. Extra-ocular movements intact. Sensation intact to soft touch in all 4 limbs. Psych: Appropriate mood. Full affect. Oriented to person, place, time, and situation. Lines: Not discussed. Diagnostic Studies: Available diagnostic studies were reviewed personally. Significant relevant results and findings are outlined below or addressed in the Assessment and Plan above. Pertinent Imaging: \\-- Maxillofacial CT: Sinusitis; no osteomyelitis; 3.7 cm complex mass adjacent to right mandible, abscess not excluded. \\-- MRI: Soft tissue inflammation along the right face, moderate subcutaneous edema and complex fluid collection along anterior right masseter and platysma, focal ovoid structure (3.5 cm) possibly inflammatory, with fatty and fluid components, abscess not excluded. \\-- Repeat maxillofacial CT (after antibiotics): Complex lesion/collection anterior to right masseter measuring 1.7 cm. Laboratory Results: \\-- WBC: 6.7 \\-- Hemoglobin: 13.9 \\-- Platelets: 253 \\-- Sodium: 134 \\-- BUN: 46 \\-- Creatinine: 10.9 Plan discussed with: Patient FLAQUITO FREEMAN MD Apr 25, 2025 16:30"
--- NOTE | 2025-04-25 16:30 | DVHPN2 ---
Consult Progress Note Date Seen: Apr 23, 2025 Subjective Patient reports: Other (currently tolerating diet , less tender in mouth area ) Objective vital signs Vital Sign Date Time Temp Pulse Resp B/P (MAP) Pulse Ox O2 Delivery O2 Flow Rate FiO2 04/25/25 13:00 97.9 91 18 134/68 (90) 98 97.9 04/25/25 07:55 Room Air* 0 21 Total Intake and Output 04/24/25 04/24/25 04/25/25 15:00 23:00 07:00 Intake Total 750 ml 800 ml Balance 750 ml 800 ml medications Current Medications Medications Dose Ordered Sig/Sita Route Start Time Stop Time Status Last Admin Dose Admin Vancomycin HCl 0 ml @ 0 mls/hr UD IV 04/19/25 18:30 Sodium Chloride 10 ml Q8HR IV 04/19/25 22:00 04/25/25 11:54 Docusate Sodium 100 mg BIDPRN PRN PO 04/19/25 18:30 Acetaminophen 650 mg Q6HP PRN PO 04/19/25 18:30 Acetaminophen/ Hydrocodone Bitart 1 tab Q4HP PRN PO 04/19/25 18:30 Ondansetron HCl 4 mg Q4HP PRN IV 04/19/25 18:30 Amlodipine Besylate 5 mg DAILY PO 04/20/25 10:00 04/24/25 09:43 Multivit/Ca Carb/ B Cmplx/FA/Prenat 1 tab DAILY PO 04/20/25 10:00 04/25/25 11:47 Furosemide 80 mg DAILY PO 04/20/25 10:00 04/24/25 09:42 Ceftriaxone Sodium/Dextrose 50 ml @ 50 mls/hr DAILY IV 04/21/25 10:00 04/25/25 11:47 Patient Own Medication 420 mg TIDWM PO 04/21/25 18:00 04/25/25 13:18 Sevelamer HCl 1,600 mg TIDWM PO 04/22/25 12:00 04/25/25 11:47 Tamsulosin HCl 0.4 mg QPM PO 04/24/25 18:00 04/24/25 18:23 laboratory and microbiology Laboratory Tests 04/25/25 08:25 04/24/25 05:43 Test 04/24/25 05:43 Range/Units Serum Glucose 97 74-106 mg/dL Problem List/Assessment/Plan Problems(with codes): (1) Septic shock (2) Abscess of face (3) Sepsis (4) 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 Notable history includes recent dental extraction approximately one month ago. The swelling is non-tender and overlying the right cheek. No fevers or chills. No tobacco or drug use. Review of imaging (CT/MRI) demonstrates sinusitis and complex fluid collection/edema along the right face near the masseter, with a focal ovoid structure, possible abscess, and inflammatory/fatty components. Following three days of antibiotics (vancomycin, ceftriaxone), repeat CT showed reduction of the collection to 1.7 cm. Laboratory data: WBC 6.7, hemoglobin 13.9, platelets 253, sodium 134, BUN 46, creatinine 10.9. Abscess cannot be excluded; actinomyces considered as an etiology given the dental association. 04/23: tolerating dialysis and no leukocytosis Plan: \-- Continue vancomycin and ceftriaxone. \-- Monitor for progression or improvement of facial cellulitis/abscess. \-- Recommend evaluation by surgical team/ENT at a higher level of care for possible surgical intervention. \-- If improvement, arrange ENT follow-up within 1-2 weeks. Consider at least 30 days of antibiotics as outpatient. \-- Attempt to identify causative organism from the lesion; culture if possible. \-- Screen for diabetes. \-- Defer management of end stage renal disease to nephrology. Isolation Precautions: standard Plan discussed with: Other Dietary Evaluation Review Comments: 1. follow a renal specif diet with 65g protein 2. increase dialysis hours Expected Outcomes/Goals: less uremic syndrome, decrease body wt. FLAQUITO TOLLIVER MD Apr 25, 2025 16:30
--- NOTE | 2025-04-25 16:31 | DVHPN2 ---
Consult Progress Note Date Seen: Apr 24, 2025 Subjective Patient reports: Feels better (redness on cheek continues to improve and no discomfort at this time ) Objective vital signs Vital Sign Date Time Temp Pulse Resp B/P (MAP) Pulse Ox O2 Delivery O2 Flow Rate FiO2 04/25/25 13:00 97.9 91 18 134/68 (90) 98 97.9 04/25/25 07:55 Room Air* 0 21 Total Intake and Output 04/24/25 04/24/25 04/25/25 15:00 23:00 07:00 Intake Total 750 ml 800 ml Balance 750 ml 800 ml medications Current Medications Medications Dose Ordered Sig/Sita Route Start Time Stop Time Status Last Admin Dose Admin Vancomycin HCl 0 ml @ 0 mls/hr UD IV 04/19/25 18:30 Sodium Chloride 10 ml Q8HR IV 04/19/25 22:00 04/25/25 11:54 Docusate Sodium 100 mg BIDPRN PRN PO 04/19/25 18:30 Acetaminophen 650 mg Q6HP PRN PO 04/19/25 18:30 Acetaminophen/ Hydrocodone Bitart 1 tab Q4HP PRN PO 04/19/25 18:30 Ondansetron HCl 4 mg Q4HP PRN IV 04/19/25 18:30 Amlodipine Besylate 5 mg DAILY PO 04/20/25 10:00 04/24/25 09:43 Multivit/Ca Carb/ B Cmplx/FA/Prenat 1 tab DAILY PO 04/20/25 10:00 04/25/25 11:47 Furosemide 80 mg DAILY PO 04/20/25 10:00 04/24/25 09:42 Ceftriaxone Sodium/Dextrose 50 ml @ 50 mls/hr DAILY IV 04/21/25 10:00 04/25/25 11:47 Patient Own Medication 420 mg TIDWM PO 04/21/25 18:00 04/25/25 13:18 Sevelamer HCl 1,600 mg TIDWM PO 04/22/25 12:00 04/25/25 11:47 Tamsulosin HCl 0.4 mg QPM PO 04/24/25 18:00 04/24/25 18:23 laboratory and microbiology Laboratory Tests 04/25/25 08:25 04/24/25 05:43 Test 04/24/25 05:43 Range/Units Serum Glucose 97 74-106 mg/dL Problem List/Assessment/Plan Problems(with codes): (1) Facial cellulitis (2) ESRD (end stage renal disease) (3) 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 Notable history includes recent dental extraction approximately one month ago. The swelling is non-tender and overlying the right cheek. No fevers or chills. No tobacco or drug use. Review of imaging (CT/MRI) demonstrates sinusitis and complex fluid collection/edema along the right face near the masseter, with a focal ovoid structure, possible abscess, and inflammatory/fatty components. Following three days of antibiotics (vancomycin, ceftriaxone), repeat CT showed reduction of the collection to 1.7 cm. Laboratory data: WBC 6.7, hemoglobin 13.9, platelets 253, sodium 134, BUN 46, creatinine 10.9. Abscess cannot be excluded; actinomyces considered as an etiology given the dental association. 04/23: tolerating dialysis and no leukocytosis 04/24: patient is being evaluated for [facility] transfer Plan: \-- Continue vancomycin and ceftriaxone. \-- Monitor for progression or improvement of facial cellulitis/abscess. \-- Recommend evaluation by surgical team/ENT at a higher level of care for possible surgical intervention. \-- If improvement, arrange ENT follow-up within 1-2 weeks. Consider at least 30 days of antibiotics as outpatient. \-- Attempt to identify causative organism from the lesion; culture if possible. \-- Screen for diabetes. \-- Defer management of end stage renal disease to nephrology. Isolation Precautions: standard Plan discussed with: Other Dietary Evaluation Review Comments: 1. follow a renal specif diet with 65g protein 2. increase dialysis hours Expected Outcomes/Goals: less uremic syndrome, decrease body wt. FLAQUITO TOLLIVER MD Apr 25, 2025 16:31
--- NOTE | 2025-04-25 16:31 | DVHPN2 ---
Consult Progress Note Date Seen: Apr 25, 2025 Subjective Patient reports: Other (vancomycin courtney mccoy slightly elevated at 19.4 , no pain eating or swallowing ) Objective vital signs Vital Sign Date Time Temp Pulse Resp B/P (MAP) Pulse Ox O2 Delivery O2 Flow Rate FiO2 04/25/25 13:00 97.9 91 18 134/68 (90) 98 97.9 04/25/25 07:55 Room Air* 0 21 Total Intake and Output 04/24/25 04/24/25 04/25/25 15:00 23:00 07:00 Intake Total 750 ml 800 ml Balance 750 ml 800 ml medications Current Medications Medications Dose Ordered Sig/Sita Route Start Time Stop Time Status Last Admin Dose Admin Vancomycin HCl 0 ml @ 0 mls/hr UD IV 04/19/25 18:30 Sodium Chloride 10 ml Q8HR IV 04/19/25 22:00 04/25/25 11:54 Docusate Sodium 100 mg BIDPRN PRN PO 04/19/25 18:30 Acetaminophen 650 mg Q6HP PRN PO 04/19/25 18:30 Acetaminophen/ Hydrocodone Bitart 1 tab Q4HP PRN PO 04/19/25 18:30 Ondansetron HCl 4 mg Q4HP PRN IV 04/19/25 18:30 Amlodipine Besylate 5 mg DAILY PO 04/20/25 10:00 04/24/25 09:43 Multivit/Ca Carb/ B Cmplx/FA/Prenat 1 tab DAILY PO 04/20/25 10:00 04/25/25 11:47 Furosemide 80 mg DAILY PO 04/20/25 10:00 04/24/25 09:42 Ceftriaxone Sodium/Dextrose 50 ml @ 50 mls/hr DAILY IV 04/21/25 10:00 04/25/25 11:47 Patient Own Medication 420 mg TIDWM PO 04/21/25 18:00 04/25/25 13:18 Sevelamer HCl 1,600 mg TIDWM PO 04/22/25 12:00 04/25/25 11:47 Tamsulosin HCl 0.4 mg QPM PO 04/24/25 18:00 04/24/25 18:23 laboratory and microbiology Laboratory Tests 04/25/25 08:25 04/24/25 05:43 Test 04/24/25 05:43 Range/Units Serum Glucose 97 74-106 mg/dL Problem List/Assessment/Plan Problems(with codes): (1) Facial cellulitis (2) ESRD (end stage renal disease) (3) 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 Notable history includes recent dental extraction approximately one month ago. The swelling is non-tender and overlying the right cheek. No fevers or chills. No tobacco or drug use. Review of imaging (CT/MRI) demonstrates sinusitis and complex fluid collection/edema along the right face near the masseter, with a focal ovoid structure, possible abscess, and inflammatory/fatty components. Following three days of antibiotics (vancomycin, ceftriaxone), repeat CT showed reduction of the collection to 1.7 cm. Laboratory data: WBC 6.7, hemoglobin 13.9, platelets 253, sodium 134, BUN 46, creatinine 10.9. Abscess cannot be excluded; actinomyces considered as an etiology given the dental association. 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 Still awaiting transfer Plan: \-- Continue vancomycin and ceftriaxone. \-- Monitor for progression or improvement of facial cellulitis/abscess. \-- Recommend evaluation by surgical team/ENT at a higher level of care for possible surgical intervention. \-- If improvement, arrange ENT follow-up within 1-2 weeks. Consider at least 30 days of antibiotics as outpatient. \-- Attempt to identify causative organism from the lesion; culture if possible. \-- Screen for diabetes. \-- Defer management of end stage renal disease to nephrology. Isolation Precautions: standard Plan discussed with: Other Dietary Evaluation Review Comments: 1. follow a renal specif diet with 65g protein 2. increase dialysis hours Expected Outcomes/Goals: less uremic syndrome, decrease body wt. FLAQUITO TOLLIVER MD Apr 25, 2025 16:31
[2025-04-25] MEDS: VANCOMYCIN 500mg/100mL 100 ML IV ONE (17:46)
[2025-04-25] MEDS ORDERED: EPOETIN ALFA-EPBX 4,000 UNIT/ML VIAL SC ONE (21:00)
[2025-04-26] VITALS (7 sets, daily range): BP systolic 95–146; BP diastolic 60–98; PULSE 71–89; RESP 18–20; TEMP 96.1–98.3; O2SAT 98–99
--- NOTE | 2025-04-26 13:23 | DVHPN2 ---
Subjective Clinically stable. Facial pain and discomfort is improving. Pending transferred to higher level of care. Reviewed: Care Plan, H&P, Labs, Medications, Previous Orders, Radiology Changes from previous H/P or p: No Changes General: Per HPI Objective Vitals Vital Signs Date Time Temp Pulse Resp B/P (MAP) Pulse Ox O2 Delivery O2 Flow Rate FiO2 04/26/25 12:59 97.4 83 20 146/98 (114) 99 97.4 04/26/25 08:00 Room Air* 0 21 Intake/Output Intake and Output 04/26/25 07:00 Intake Total 1750 ml Balance 1750 ml Intake Oral 1700 ml IV Total 50 ml # Voids 11 # Bowel Movements 2 Exam Alert awake oriented x3. HEENT neck supple no JVD. Facial swelling has significantly improved. Oropharynx clear without any lesions or exudates. Heart regular rate rhythm S1-S2. Lungs fair air movement without rales wheezes. Abdomen soft obese positive bowel sounds. Extremities no edema positive pulses. General Appearance: Alert, Oriented X3, Cooperative HEENT: Atraumatic Cardiovascular: Regular rate, Normal S1, Normal S2 Abdomen: Normal bowel sounds, Soft Medications Current Medications Medications Dose Ordered Sig/Sita Route Start Time Stop Time Status Last Admin Dose Admin Vancomycin HCl 0 ml @ 0 mls/hr UD IV 04/19/25 18:30 Sodium Chloride 10 ml Q8HR IV 04/19/25 22:00 04/26/25 05:47 10 ML Docusate Sodium 100 mg BIDPRN PRN PO 04/19/25 18:30 Acetaminophen 650 mg Q6HP PRN PO 04/19/25 18:30 Acetaminophen/ Hydrocodone Bitart 1 tab Q4HP PRN PO 04/19/25 18:30 Ondansetron HCl 4 mg Q4HP PRN IV 04/19/25 18:30 Amlodipine Besylate 5 mg DAILY PO 04/20/25 10:00 04/26/25 08:36 5 MG Multivit/Ca Carb/ B Cmplx/FA/Prenat 1 tab DAILY PO 04/20/25 10:00 04/26/25 08:36 1 TAB Furosemide 80 mg DAILY PO 04/20/25 10:00 04/26/25 08:37 80 MG Ceftriaxone Sodium/Dextrose 50 ml @ 50 mls/hr DAILY IV 04/21/25 10:00 04/26/25 08:35 50 MLS/HR Patient Own Medication 420 mg TIDWM PO 04/21/25 18:00 04/26/25 12:00 420 MG Sevelamer HCl 1,600 mg TIDWM PO 04/22/25 12:00 04/26/25 13:00 1,600 MG Tamsulosin HCl 0.4 mg QPM PO 04/24/25 18:00 04/25/25 18:59 0.4 MG Laboratory Results Laboratory Tests 04/24/25 05:43 04/25/25 08:25 Microbiology Microbiology Date/Time Source Procedure Growth Status 04/19/25 23:21 Nose MRSA Screen - Final Complete Assessment/Plan Assessment/Plan Continue current antibiotics and management as he is on. Encouraged activity ambulation. Being followed by Infectious Disease. If patient does not get transferred to higher level care by Monday we will repeat another CT of the face to further evaluate improvement in his abscess. Plan discussed with: Patient, Other Problem List: (1) Facial cellulitis (2) ESRD (end stage renal disease) (3) Abscess of face Date of Service: Apr 26, 2025 Billing Provider: MELYSSA LE MD Common Visit Codes: [id number] INP/OBS CARE(MOD) MELYSSA LE MD Apr 26, 2025 13:23
--- NOTE | 2025-04-26 15:35 | DVHPN2 ---
Progress Note - Dictate Date Seen: Apr 26, 2025 Has the PT tested + for MRSA If YES, has PT been informed?: No Medical Necessity Reason Pt with a Central, PICC or Fol: No Subjective No acute issues overnight. vital signs Vital Sign Date Time Temp Pulse Resp B/P (MAP) Pulse Ox O2 Delivery O2 Flow Rate FiO2 04/26/25 12:59 97.4 83 20 146/98 (114) 99 97.4 04/26/25 08:00 Room Air* 0 21 Total Intake and Output 04/25/25 04/25/25 04/26/25 15:00 23:00 07:00 Intake Total 950 ml 800 ml Balance 950 ml 800 ml medications Current Medications Medications Dose Ordered Sig/Sita Route Start Time Stop Time Status Last Admin Dose Admin Vancomycin HCl 0 ml @ 0 mls/hr UD IV 04/19/25 18:30 Sodium Chloride 10 ml Q8HR IV 04/19/25 22:00 04/26/25 14:00 10 ML Docusate Sodium 100 mg BIDPRN PRN PO 04/19/25 18:30 Acetaminophen 650 mg Q6HP PRN PO 04/19/25 18:30 Acetaminophen/ Hydrocodone Bitart 1 tab Q4HP PRN PO 04/19/25 18:30 Ondansetron HCl 4 mg Q4HP PRN IV 04/19/25 18:30 Amlodipine Besylate 5 mg DAILY PO 04/20/25 10:00 04/26/25 08:36 5 MG Multivit/Ca Carb/ B Cmplx/FA/Prenat 1 tab DAILY PO 04/20/25 10:00 04/26/25 08:36 1 TAB Furosemide 80 mg DAILY PO 04/20/25 10:00 04/26/25 08:37 80 MG Ceftriaxone Sodium/Dextrose 50 ml @ 50 mls/hr DAILY IV 04/21/25 10:00 04/26/25 08:35 50 MLS/HR Patient Own Medication 420 mg TIDWM PO 04/21/25 18:00 04/26/25 12:00 420 MG Sevelamer HCl 1,600 mg TIDWM PO 04/22/25 12:00 04/26/25 13:00 1,600 MG Tamsulosin HCl 0.4 mg QPM PO 04/24/25 18:00 04/25/25 18:59 0.4 MG objective HEENT: No evidence of JVD, no oral ulcers. Swelling and induration in the right upper check no skin erythema Pulmonary: Lungs are clear on auscultation bilaterally Cardiovascular S1-S2, no S3 or S4 Abdomen: Bowel sounds positive, soft no rebound tenderness Skin: No rash Neurological: Alert, oriented, no focal weakness Av fistula positive bruit and thrill, infiltration noticed with no expanding hematoma, positive bruit and thrill today no increased temperature or cellulitic changes. laboratory and microbiology Laboratory Tests 04/25/25 08:25 04/24/25 05:43 Test 04/24/25 05:43 Range/Units Serum Glucose 97 74-106 mg/dL Assessment/Plan Assessment: End-stage kidney disease on hemodialysis TTS outpatient Right side of the face inflammation with possible abscess Right facial cellulitis Hypertension Infiltration the left upper thigh around the access Plan/Recommendation: Dialysis was completed yesterday with 3 L UF. Next we will be Monday Awaiting transfer to higher levels of care Continue with the IV antibiotics, renally dosed CT scan was repeated today Patient needs maxillofacial surgeon or ENT consultation MRI results reviewed Blood pressure control. Continue with Renvela Dietary Evaluation Review Comments: 1. follow a renal specif diet with 65g protein 2. increase dialysis hours Expected Outcomes/Goals: less uremic syndrome, decrease body wt. Plan discussed with: Patient AUBREE HENDRICKSON MD Apr 26, 2025 15:35
[2025-04-27] VITALS (8 sets, daily range): BP systolic 102–143; BP diastolic 50–82; PULSE 76–83; RESP 17–21; TEMP 96–98.1; O2SAT 98–100
--- NOTE | 2025-04-27 13:20 | DVHPN2 ---
Subjective Clinically stable. Facial pain and discomfort is improving. Pending transferred to higher level of care. Reviewed: Care Plan, H&P, Labs, Medications, Previous Orders, Radiology Changes from previous H/P or p: No Changes General: Per HPI Objective Vitals Vital Signs Date Time Temp Pulse Resp B/P (MAP) Pulse Ox O2 Delivery O2 Flow Rate FiO2 04/27/25 12:34 96.0 82 18 130/78 (95) 100 96.0 04/26/25 20:15 Room Air* 0 21 Intake/Output Intake and Output 04/27/25 07:00 Intake Total 2100 ml Balance 2100 ml Intake Oral 2050 ml IV Total 50 ml # Voids 12 # Bowel Movements 3 Exam Alert awake oriented x3. HEENT neck supple no JVD. Facial swelling has significantly improved. Oropharynx clear without any lesions or exudates. Heart regular rate rhythm S1-S2. Lungs fair air movement without rales wheezes. Abdomen soft obese positive bowel sounds. Extremities no edema positive pulses. General Appearance: Alert, Oriented X3, Cooperative HEENT: Atraumatic Cardiovascular: Regular rate, Normal S1, Normal S2 Abdomen: Normal bowel sounds, Soft Medications Current Medications Medications Dose Ordered Sig/Sita Route Start Time Stop Time Status Last Admin Dose Admin Vancomycin HCl 0 ml @ 0 mls/hr UD IV 04/19/25 18:30 Sodium Chloride 10 ml Q8HR IV 04/19/25 22:00 04/27/25 06:18 10 ML Docusate Sodium 100 mg BIDPRN PRN PO 04/19/25 18:30 Acetaminophen 650 mg Q6HP PRN PO 04/19/25 18:30 Acetaminophen/ Hydrocodone Bitart 1 tab Q4HP PRN PO 04/19/25 18:30 Ondansetron HCl 4 mg Q4HP PRN IV 04/19/25 18:30 Amlodipine Besylate 5 mg DAILY PO 04/20/25 10:00 04/27/25 08:21 5 MG Multivit/Ca Carb/ B Cmplx/FA/Prenat 1 tab DAILY PO 04/20/25 10:00 04/27/25 08:20 1 TAB Furosemide 80 mg DAILY PO 04/20/25 10:00 04/27/25 08:21 80 MG Ceftriaxone Sodium/Dextrose 50 ml @ 50 mls/hr DAILY IV 04/21/25 10:00 04/27/25 08:21 50 MLS/HR Patient Own Medication 420 mg TIDWM PO 04/21/25 18:00 04/27/25 12:45 420 MG Sevelamer HCl 1,600 mg TIDWM PO 04/22/25 12:00 04/27/25 12:45 1,600 MG Tamsulosin HCl 0.4 mg QPM PO 04/24/25 18:00 04/26/25 18:08 0.4 MG Laboratory Results Laboratory Tests 04/24/25 05:43 04/25/25 08:25 Microbiology Microbiology Date/Time Source Procedure Growth Status 04/19/25 23:21 Nose MRSA Screen - Final Complete Assessment/Plan Assessment/Plan Continue current antibiotics and management as he is on. We will repeat a CT of the face tomorrow. Still no beds available for transfer I level of care. Plan discussed with: Patient, Other (Nurse) Problem List: (1) Facial cellulitis (2) ESRD (end stage renal disease) (3) Chronic deep vein thrombosis (DVT) of internal jugular vein (4) Abscess of face Date of Service: Apr 27, 2025 Billing Provider: MELYSSA LE MD Common Visit Codes: [id number] INP/OBS CARE(MOD) MELYSSA LE MD Apr 27, 2025 13:20
[2025-04-27 15:03] LABS: Chloride 98 mmol/L (98-107); Potassium 4.4 mmol/L (3.5-5.1); Sodium 139 mmol/L (136-145)
[2025-04-27 15:04] LABS: Anion Gap 16 (5-15); Carbon Dioxide 25 mmol/L (20-31)
[2025-04-27 15:05] LABS: Calcium 9.4 mg/dL (8.7-10.4)
[2025-04-27 15:10] LABS: BUN/Creatinine Ratio 6.4 (10.0-20.0); Glucose 79 mg/dL (74-106)
[2025-04-27 15:13] LABS: Blood Urea Nitrogen 109 mg/dL (9-23)
--- NOTE | 2025-04-27 15:37 | DVHPN2 ---
Progress Note - Dictate Date Seen: Apr 27, 2025 Has the PT tested + for MRSA If YES, has PT been informed?: No Medical Necessity Reason Pt with a Central, PICC or Fol: No Subjective No acute issues overnight. vital signs Vital Sign Date Time Temp Pulse Resp B/P (MAP) Pulse Ox O2 Delivery O2 Flow Rate FiO2 04/27/25 12:34 96.0 82 18 130/78 (95) 100 96.0 04/26/25 20:15 Room Air* 0 21 Total Intake and Output 04/26/25 04/26/25 04/27/25 15:00 23:00 07:00 Intake Total 50 ml 1100 ml 950 ml Balance 50 ml 1100 ml 950 ml medications Current Medications Medications Dose Ordered Sig/Sita Route Start Time Stop Time Status Last Admin Dose Admin Vancomycin HCl 0 ml @ 0 mls/hr UD IV 04/19/25 18:30 Sodium Chloride 10 ml Q8HR IV 04/19/25 22:00 04/27/25 06:18 10 ML Docusate Sodium 100 mg BIDPRN PRN PO 04/19/25 18:30 Acetaminophen 650 mg Q6HP PRN PO 04/19/25 18:30 Acetaminophen/ Hydrocodone Bitart 1 tab Q4HP PRN PO 04/19/25 18:30 Ondansetron HCl 4 mg Q4HP PRN IV 04/19/25 18:30 Amlodipine Besylate 5 mg DAILY PO 04/20/25 10:00 04/27/25 08:21 5 MG Multivit/Ca Carb/ B Cmplx/FA/Prenat 1 tab DAILY PO 04/20/25 10:00 04/27/25 08:20 1 TAB Furosemide 80 mg DAILY PO 04/20/25 10:00 04/27/25 08:21 80 MG Ceftriaxone Sodium/Dextrose 50 ml @ 50 mls/hr DAILY IV 04/21/25 10:00 04/27/25 08:21 50 MLS/HR Patient Own Medication 420 mg TIDWM PO 04/21/25 18:00 04/27/25 12:45 420 MG Sevelamer HCl 1,600 mg TIDWM PO 04/22/25 12:00 04/27/25 12:45 1,600 MG Tamsulosin HCl 0.4 mg QPM PO 04/24/25 18:00 04/26/25 18:08 0.4 MG objective HEENT: No evidence of JVD, no oral ulcers. Swelling and induration in the right upper check no skin erythema Pulmonary: Lungs are clear on auscultation bilaterally Cardiovascular S1-S2, no S3 or S4 Abdomen: Bowel sounds positive, soft no rebound tenderness Skin: No rash Neurological: Alert, oriented, no focal weakness Av fistula positive bruit and thrill, infiltration noticed with no expanding hematoma, positive bruit and thrill today no increased temperature or cellulitic changes. laboratory and microbiology Laboratory Tests 04/27/25 14:43 04/24/25 05:43 Test 04/27/25 14:43 Range/Units Serum Glucose 79 74-106 mg/dL Assessment/Plan Assessment: End-stage kidney disease on hemodialysis TTS outpatient Right side of the face inflammation with possible abscess Right facial cellulitis Hypertension Infiltration the left upper thigh around the access Plan/Recommendation: Dialysis Monday. Awaiting transfer to higher levels of care Continue with the IV antibiotics, renally dosed CT scan was repeated Patient needs maxillofacial surgeon or ENT consultation MRI results reviewed. Blood pressure control. Continue with Renvela. Dietary Evaluation Review Comments: 1. follow a renal specif diet with 65g protein 2. increase dialysis hours Expected Outcomes/Goals: less uremic syndrome, decrease body wt. Plan discussed with: Patient AUBREE HENDRICKSON MD Apr 27, 2025 15:37
[2025-04-28] VITALS (8 sets, daily range): BP systolic 104–143; BP diastolic 62–82; PULSE 76–88; RESP 16–20; TEMP 97.7–98.3; O2SAT 97–100
[2025-04-28] MEDS ORDERED: SODIUM CHL 0.9% 1000 ML BAG XX ONE (07:00)
--- NOTE | 2025-04-28 11:32 | DVH ---
CT MAXILLOFACIAL WITHOUT Indication: Follow up facial cellulitis/abscess EXAM DATE: 04/28/2025 09:39 AM COMPARISON: CT MAXILLOFACIAL WITH on DOS: 04/24/25, CT MAXILLOFACIAL WITHOUT on DOS: 04/19/25 TECHNIQUE: CT of the head without intravenous contrast. RADIATION DOSE: CTDIvol: 56.41 mGy, DLP: 1228.28 mGy*cm FINDINGS: Redemonstration of complex lesion/collection seen anterior to the right masseter musculature measurin g 1.8 x 1.5 cm, similar to the previous examination. There is right facial region soft tissue strand ing. There is beam hardening artifact from adjacent hardware which obscures evaluation. Orbits and retrobulbar spaces unremarkable. Mastoids well pneumatized. Ethmoid and bilateral maxillary sinus disease most pronounced within the r ight maxillary sinus. Atherosclerotic calcification disease. Moderate cervical degenerative disc disease. IMPRESSION: Similar appearing right facial region complex lesion/ collection anterior to the masseter musculature measuring 1.8 x 1.5 cm with differential considerations including phlegmonous/abscess, soft tissue m ass. Recommend ENT/ surgical consultation for further management. Paranasal sinus disease.
--- NOTE | 2025-04-28 13:06 | DVHPN2 ---
Subjective Clinically stable. Still waiting for transfer to higher level of care. Last social work note on the says that there waiting to hear from hospitalist and [facility]. Meantime patient remains clinically stable. Says he feels better. Repeat CT of the maxillofacial region shows a stable phlegmon/abscess/mass which was seen on previous CT done on the without any significant changes. Reviewed: Care Plan, H&P, Labs, Medications, Previous Orders, Radiology Changes from previous H/P or p: No Changes General: Per HPI Objective Vitals Vital Signs Date Time Temp Pulse Resp B/P (MAP) Pulse Ox O2 Delivery O2 Flow Rate FiO2 04/28/25 09:57 136/76 04/28/25 09:00 97.8 81 20 99 97.8 04/27/25 20:00 Room Air* 0 21 Intake/Output Intake and Output 04/28/25 07:00 Intake Total 4460 ml Balance 4460 ml Intake Oral 4460 ml # Voids 8 # Bowel Movements 1 Exam Alert awake oriented x3. HEENT neck supple no JVD. Facial swelling has significantly improved. Oropharynx clear without any lesions or exudates. Heart regular rate rhythm S1-S2. Lungs fair air movement without rales wheezes. Abdomen soft obese positive bowel sounds. Extremities no edema positive pulses. General Appearance: Alert, Oriented X3, Cooperative HEENT: Atraumatic Cardiovascular: Regular rate, Normal S1, Normal S2 Abdomen: Normal bowel sounds, Soft Medications Current Medications Medications Dose Ordered Sig/Sita Route Start Time Stop Time Status Last Admin Dose Admin Vancomycin HCl 0 ml @ 0 mls/hr UD IV 04/19/25 18:30 Sodium Chloride 10 ml Q8HR IV 04/19/25 22:00 04/27/25 22:10 10 ML Docusate Sodium 100 mg BIDPRN PRN PO 04/19/25 18:30 Acetaminophen 650 mg Q6HP PRN PO 04/19/25 18:30 Acetaminophen/ Hydrocodone Bitart 1 tab Q4HP PRN PO 04/19/25 18:30 Ondansetron HCl 4 mg Q4HP PRN IV 04/19/25 18:30 Amlodipine Besylate 5 mg DAILY PO 04/20/25 10:00 04/28/25 09:57 5 MG Multivit/Ca Carb/ B Cmplx/FA/Prenat 1 tab DAILY PO 04/20/25 10:00 04/28/25 09:56 1 TAB Furosemide 80 mg DAILY PO 04/20/25 10:00 04/28/25 09:56 80 MG Ceftriaxone Sodium/Dextrose 50 ml @ 50 mls/hr DAILY IV 04/21/25 10:00 04/28/25 09:57 50 MLS/HR Patient Own Medication 420 mg TIDWM PO 04/21/25 18:00 04/28/25 12:01 420 MG Sevelamer HCl 1,600 mg TIDWM PO 04/22/25 12:00 04/28/25 12:01 1,600 MG Tamsulosin HCl 0.4 mg QPM PO 04/24/25 18:00 04/27/25 18:04 0.4 MG Laboratory Results Laboratory Tests 04/24/25 05:43 04/27/25 14:43 04/28/25 06:26 Chemistry Test 04/27/25 14:43 Calcium Level 9.4 mg/dL (8.7-10.4) Microbiology Microbiology Date/Time Source Procedure Growth Status 04/19/25 23:21 Nose MRSA Screen - Final Complete Assessment/Plan Assessment/Plan Given patient is afebrile, white cell count is being normal, CT of the maxillofacial region done today being stable I have told patient that the two options he is still continued to transferred to higher level of care for ERCP/maxillofacial surgeon evaluation and if this is not possible in reasonable amount of time then consider discharge home with oral antibiotics per ID recommendations and to have outpatient follow up with the ENT maxillofacial surgeon. Patient verbalized understanding of this and prefers to see if he can transfer from inpatient to inpatient if possible. We will reach out to social staff worker once again today to see if patient has a accepting facility or place where he can be transferred. Meantime continue present management including antibiotics and hemodialysis as he is on. 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
--- NOTE | 2025-04-28 16:09 | DVHPN2 ---
Progress Note - Dictate Date Seen: Apr 28, 2025 Has the PT tested + for MRSA If YES, has PT been informed?: No Medical Necessity Reason Pt with a Central, PICC or Fol: No Subjective No new complaints vital signs Vital Sign Date Time Temp Pulse Resp B/P (MAP) Pulse Ox O2 Delivery O2 Flow Rate FiO2 04/28/25 13:00 97.7 76 20 141/73 (95) 100 97.7 04/28/25 08:00 Room Air* 0 21 Total Intake and Output 04/27/25 04/27/25 04/28/25 15:00 23:00 07:00 Intake Total 710 ml 1900 ml 1850 ml Balance 710 ml 1900 ml 1850 ml medications Current Medications Medications Dose Ordered Sig/Sita Route Start Time Stop Time Status Last Admin Dose Admin Vancomycin HCl 0 ml @ 0 mls/hr UD IV 04/19/25 18:30 Sodium Chloride 10 ml Q8HR IV 04/19/25 22:00 04/27/25 22:10 10 ML Docusate Sodium 100 mg BIDPRN PRN PO 04/19/25 18:30 Acetaminophen 650 mg Q6HP PRN PO 04/19/25 18:30 Acetaminophen/ Hydrocodone Bitart 1 tab Q4HP PRN PO 04/19/25 18:30 Ondansetron HCl 4 mg Q4HP PRN IV 04/19/25 18:30 Amlodipine Besylate 5 mg DAILY PO 04/20/25 10:00 04/28/25 09:57 5 MG Multivit/Ca Carb/ B Cmplx/FA/Prenat 1 tab DAILY PO 04/20/25 10:00 04/28/25 09:56 1 TAB Furosemide 80 mg DAILY PO 04/20/25 10:00 04/28/25 09:56 80 MG Ceftriaxone Sodium/Dextrose 50 ml @ 50 mls/hr DAILY IV 04/21/25 10:00 04/28/25 09:57 50 MLS/HR Patient Own Medication 420 mg TIDWM PO 04/21/25 18:00 04/28/25 12:01 420 MG Sevelamer HCl 1,600 mg TIDWM PO 04/22/25 12:00 04/28/25 12:01 1,600 MG Tamsulosin HCl 0.4 mg QPM PO 04/24/25 18:00 04/27/25 18:04 0.4 MG objective HEENT: No evidence of JVD, no oral ulcers. Swelling and induration in the right upper check no skin erythema Pulmonary: Lungs are clear on auscultation bilaterally Cardiovascular S1-S2, no S3 or S4 Abdomen: Bowel sounds positive, soft no rebound tenderness Skin: No rash Neurological: Alert, oriented, no focal weakness Av fistula positive bruit and thrill, infiltration noticed with no expanding hematoma, positive bruit and thrill today no increased temperature or cellulitic changes. laboratory and microbiology Laboratory Tests 04/28/25 06:26 04/27/25 14:43 04/24/25 05:43 Test 04/27/25 14:43 Range/Units Serum Glucose 79 74-106 mg/dL Problem List Assessment: End-stage kidney disease on hemodialysis Right side of the face inflammation with possible abscess Right facial cellulitis Hypertension Infiltration the left upper thigh around the access Plan/Recommendation: Dialysis MWF while in house Awaiting transfer to higher levels of care Continue with the IV antibiotics, renally dosed Patient needs maxillofacial surgeon or ENT consultation MRI results reviewed. Blood pressure control. Continue with Renvela. Dietary Evaluation Review Comments: 1. follow a renal specif diet with 65g protein 2. increase dialysis hours Expected Outcomes/Goals: less uremic syndrome, decrease body wt. Plan discussed with: Patient RORO CRESPO MD Apr 28, 2025 16:09
[2025-04-28] MEDS: VANCOMYCIN 500mg/100mL 100 ML IV ONE (18:52)
[2025-04-29 01:03] VITALS: BP 117/69; PULSE 85; RESP 16; TEMP 98.2; O2SAT 96
[2025-04-29 05:00] VITALS: BP 136/91; PULSE 82; RESP 16; TEMP 98.1; O2SAT 100
[2025-04-29 06:31] LABS: Hemoglobin 11.2 g/dL (13.5-17.5)
[2025-04-29 06:35] LABS: Hematocrit 31.9 % (41.0-53.0); Mean Corpuscular Hemoglobin 35.4 pg (28.0-32.0); Mean Corpuscular Volume 101.0 fL (80.0-100.0); Nucleated Red Blood Cells % 0.1 %
[2025-04-29 06:43] LABS: Potassium 4.3 mmol/L (3.5-5.1); Sodium 138 mmol/L (136-145)
[2025-04-29 06:44] LABS: Anion Gap 14 (5-15); Carbon Dioxide 28 mmol/L (20-31)
[2025-04-29 06:50] LABS: BUN/Creatinine Ratio 5.2 (10.0-20.0)
[2025-04-29 06:55] LABS: Blood Urea Nitrogen 68 mg/dL (9-23); Calcium 10.4 mg/dL (8.7-10.4); Chloride 96 mmol/L (98-107); Glucose 116 mg/dL (74-106)
[2025-04-29 09:00] VITALS: BP 126/68; PULSE 79; RESP 16; TEMP 97.9; O2SAT 100
[2025-04-29 13:00] VITALS: BP 130/78; PULSE 79; RESP 16; TEMP 97.8; O2SAT 100
--- NOTE | 2025-04-29 13:30 | DVHPN2 ---
Subjective Social Service looking into transferred to higher level of care. Patient apparently accepted at one place however he did not want to go to that facility. Therefore they are looking into other places. Meantime patient remains clinically stable. No complaints. Reviewed: Care Plan, H&P, Labs, Medications, Previous Orders, Radiology Changes from previous H/P or p: No Changes General: Per HPI Objective Vitals Vital Signs Date Time Temp Pulse Resp B/P (MAP) Pulse Ox O2 Delivery O2 Flow Rate FiO2 04/29/25 13:00 97.8 79 16 130/78 (95) 100 97.8 04/28/25 20:00 Room Air* 0 21 Intake/Output Intake and Output 04/29/25 07:00 Intake Total 1728 ml Balance 1728 ml Intake Oral 1678 ml IV Total 50 ml # Voids 10 # Bowel Movements 3 Exam Alert awake oriented x3. HEENT neck supple no JVD. Facial swelling has significantly improved. Oropharynx clear without any lesions or exudates. Heart regular rate rhythm S1-S2. Lungs fair air movement without rales wheezes. Abdomen soft obese positive bowel sounds. Extremities no edema positive pulses. General Appearance: Alert, Oriented X3, Cooperative HEENT: Atraumatic Cardiovascular: Regular rate, Normal S1, Normal S2 Abdomen: Normal bowel sounds, Soft Medications Current Medications Medications Dose Ordered Sig/Sita Route Start Time Stop Time Status Last Admin Dose Admin Vancomycin HCl 0 ml @ 0 mls/hr UD IV 04/19/25 18:30 Sodium Chloride 10 ml Q8HR IV 04/19/25 22:00 04/29/25 12:53 10 ML Docusate Sodium 100 mg BIDPRN PRN PO 04/19/25 18:30 Acetaminophen 650 mg Q6HP PRN PO 04/19/25 18:30 Ondansetron HCl 4 mg Q4HP PRN IV 04/19/25 18:30 Amlodipine Besylate 5 mg DAILY PO 04/20/25 10:00 04/29/25 08:44 5 MG Multivit/Ca Carb/ B Cmplx/FA/Prenat 1 tab DAILY PO 04/20/25 10:00 04/29/25 08:30 1 TAB Furosemide 80 mg DAILY PO 04/20/25 10:00 04/29/25 08:45 80 MG Ceftriaxone Sodium/Dextrose 50 ml @ 50 mls/hr DAILY IV 04/21/25 10:00 04/29/25 08:30 50 MLS/HR Patient Own Medication 420 mg TIDWM PO 04/21/25 18:00 04/29/25 12:53 420 MG Sevelamer HCl 1,600 mg TIDWM PO 04/22/25 12:00 04/29/25 12:53 1,600 MG Tamsulosin HCl 0.4 mg QPM PO 04/24/25 18:00 04/28/25 18:19 0.4 MG Laboratory Results Laboratory Tests 04/29/25 06:02 Chemistry Test 04/29/25 06:02 Calcium Level 10.4 mg/dL (8.7-10.4) Microbiology Microbiology Date/Time Source Procedure Growth Status 04/19/25 23:21 Nose MRSA Screen - Final Complete Assessment/Plan Assessment/Plan Continue dialysis 3 times a week while he is in the hospital. Continued to look into transferred to higher level of care given the patient is requesting to be transferred. However I did tell him that if no accepting facilities available and he has continued to get better and improve per ID recommendations he could be discharged home with long-term oral antibiotics and outpatient follow up with the maxillofacial surgeon/ENT. Discussed with the nurse regarding care plan. Plan discussed with: Other Problem List: (1) Abscess of face (2) Facial cellulitis (3) ESRD (end stage renal disease) (4) Chronic deep vein thrombosis (DVT) of internal jugular vein Date of Service: Apr 29, 2025 Billing Provider: MELYSSA LE MD Common Visit Codes: [id number] INP/OBS CARE(MOD) MELYSSA LE MD Apr 29, 2025 13:30
[2025-04-29 17:00] VITALS: BP 129/80; PULSE 82; RESP 16; TEMP 98; O2SAT 100
--- NOTE | 2025-04-29 18:31 | DVHPN2 ---
Progress Note - Dictate Date Seen: Apr 29, 2025 Has the PT tested + for MRSA If YES, has PT been informed?: No Medical Necessity Reason Pt with a Central, PICC or Fol: No Subjective No new complaints vital signs Vital Sign Date Time Temp Pulse Resp B/P (MAP) Pulse Ox O2 Delivery O2 Flow Rate FiO2 04/29/25 17:00 98.0 82 16 129/80 (96) 100 98.0 04/29/25 08:30 Room Air* 0 21 Total Intake and Output 04/28/25 04/28/25 04/29/25 15:00 23:00 07:00 Intake Total 50 ml 1118 ml 560 ml Balance 50 ml 1118 ml 560 ml medications Current Medications Medications Dose Ordered Sig/Sita Route Start Time Stop Time Status Last Admin Dose Admin Vancomycin HCl 0 ml @ 0 mls/hr UD IV 04/19/25 18:30 Sodium Chloride 10 ml Q8HR IV 04/19/25 22:00 04/29/25 12:53 10 ML Docusate Sodium 100 mg BIDPRN PRN PO 04/19/25 18:30 Acetaminophen 650 mg Q6HP PRN PO 04/19/25 18:30 Ondansetron HCl 4 mg Q4HP PRN IV 04/19/25 18:30 Amlodipine Besylate 5 mg DAILY PO 04/20/25 10:00 04/29/25 08:44 5 MG Multivit/Ca Carb/ B Cmplx/FA/Prenat 1 tab DAILY PO 04/20/25 10:00 04/29/25 08:30 1 TAB Furosemide 80 mg DAILY PO 04/20/25 10:00 04/29/25 08:45 80 MG Ceftriaxone Sodium/Dextrose 50 ml @ 50 mls/hr DAILY IV 04/21/25 10:00 04/29/25 08:30 50 MLS/HR Patient Own Medication 420 mg TIDWM PO 04/21/25 18:00 04/29/25 12:53 420 MG Sevelamer HCl 1,600 mg TIDWM PO 04/22/25 12:00 04/29/25 12:53 1,600 MG Tamsulosin HCl 0.4 mg QPM PO 04/24/25 18:00 04/28/25 18:19 0.4 MG objective HEENT: No evidence of JVD, no oral ulcers. Swelling and induration in the right upper check no skin erythema Pulmonary: Lungs are clear on auscultation bilaterally Cardiovascular S1-S2, no S3 or S4 Abdomen: Bowel sounds positive, soft no rebound tenderness Skin: No rash Neurological: Alert, oriented, no focal weakness Av fistula positive bruit and thrill, infiltration noticed with no expanding hematoma, positive bruit and thrill today no increased temperature or cellulitic changes. laboratory and microbiology Laboratory Tests 04/29/25 06:02 Test 04/29/25 06:02 Range/Units Serum Glucose 116 H 74-106 mg/dL Problem List Assessment: End-stage kidney disease on hemodialysis Right side of the face inflammation with possible abscess Right facial cellulitis Hypertension Infiltration the left upper thigh around the access Plan/Recommendation: Dialysis MWF while in house Awaiting transfer to higher levels of care Continue with the IV antibiotics, renally dosed Patient needs maxillofacial surgeon or ENT consultation MRI results reviewed. Blood pressure control. Continue with Renvela. Dietary Evaluation Review Comments: 1. follow a renal specif diet with 65g protein 2. increase dialysis hours Expected Outcomes/Goals: less uremic syndrome, decrease body wt. Plan discussed with: Patient RORO CRESPO MD Apr 29, 2025 18:31
[2025-04-29 21:00] VITALS: BP 131/93; PULSE 89; RESP 17; TEMP 98.3; O2SAT 99
[2025-04-30] MEDS ORDERED: SODIUM CHL 0.9% 1000 ML BAG XX ONE (07:00)
--- NOTE | 2025-05-02 11:15 | DVHDS2 ---
Discharge Summary Date of Admission Apr 19, 2025 at 18:27 Date of Discharge: Apr 29, 2025 Labs/Diagnostic Data: Laboratory Results Test 04/29/25 06:02 04/24/25 05:43 04/23/25 05:37 04/21/25 13:19 White Blood Count 6.4 10^3/uL (4.4-10.8) Red Blood Count 3.16 10^6/uL (4.5-5.90) Hemoglobin 11.2 g/dL (13.5-17.5) Hematocrit 31.9 % (41.0-53.0) Mean Corpuscular Volume 101.0 fL (80.0-100.0) Mean Corpuscular Hemoglobin 35.4 pg (28.0-32.0) Mean Corpuscular Hemoglobin Concent 35.0 g/dL (32.0-36.0) Red Cell Distribution Width 14.2 % (11.8-14.3) Platelet Count 256 10^3/uL (140-450) Mean Platelet Volume 6.9 fL (6.9-10.8) Neutrophils (%) (Auto) 68.4 % (37.0-80.0) Lymphocytes (%) (Auto) 21.9 % (10.0-50.0) Monocytes (%) (Auto) 6.7 % (0.0-12.0) Eosinophils (%) (Auto) 2.3 % (0.0-7.0) Basophils (%) (Auto) 0.7 % (0.0-2.0) Neutrophils # (Auto) 4.4 10 ^3/uL (1.6-8.6) Lymphocytes # (Auto) 1.4 10 ^3/uL (0.4-5.4) Monocytes # (Auto) 0.4 10 ^3/uL (0-1.3) Eosinophils # (Auto) 0.1 10 ^3/uL (0-0.8) Basophils # (Auto) 0 10 ^3/uL (0-0.2) Nucleated Red Blood Cells 0.1 % Sodium Level 138 mmol/L (136-145) Potassium Level 4.3 mmol/L (3.5-5.1) Chloride Level 96 mmol/L (98-107) Carbon Dioxide Level 28 mmol/L (20-31) Anion Gap 14 (5-15) Blood Urea Nitrogen 68 mg/dL (9-23) Creatinine 13.00 mg/dL (0.700-1.30) Glomerular Filtration Rate Calc 4 mL/min (>90) BUN/Creatinine Ratio 5.2 (10.0-20.0) Serum Glucose 116 mg/dL (74-106) Calcium Level 10.4 mg/dL (8.7-10.4) Random Vancomycin Level 21.5 ug/mL (5-10) Total Bilirubin 0.3 mg/dL (0.2-1.0) Aspartate Amino Transferase (AST) 16 U/L (13-40) Alanine Aminotransferase (ALT) 26 U/L (7-40) Alkaline Phosphatase 89 U/L (46-116) Total Protein 7.8 g/dL (5.7-8.2) Albumin 4.5 g/dL (3.2-4.8) Iron Level 93 ug/dL (65-175) Total Iron Binding Capacity 220 ug/dL (250-425) Percent Iron Saturation 42.3 % (20-55) Ferritin 206.0 ng/mL (22-322) Hepatitis B Surface Antigen Negative (Negative) Test 04/19/25 18:58 04/19/25 11:27 Erythrocyte Sedimentation Rate 63 mm/hr (0-20) C-Reactive Protein High Sensitivity 0.49 mg/dL (<1.0) Other Laboratory Tests 04/29/25 06:02 Brief Hx & Hospital Course: 44-year-old male with PMHx ESRD, HTN presents with a chief complaint of facial swelling x onset last night. Patient has swelling to his right cheek, states that he had tooth extraction x 1 month ago, but has been fine since. Patient reports that the edema began spontaneously. Patient is able to move his mouth freely, open and close, speak in full sentences. He is admitted to the hospital and a evaluated by bundler and Infectious Disease. Patient had a maxillofacial CTs showed a possible abscess in the right masseter region unable to ruled out mass versus abscess. Patient empirically received IV antibiotics including vancomycin with the dialysis. However subsequent maxillofacial CT still showed persistent fluid collection/mass. Therefore recommendations made for patient to be evaluated by either ENT surgeon or maxillofacial surgeon. However neither of these specialist available at this hospital. Therefore social Service involved and patient is transferred to higher level of care for further evaluation. Subsequently patient is accepted at [facility] under ENT to evaluate him. While in the hospital patient clinically remained stable. His transfer condition also remained stable. Patient verbalized understanding of his transfer and accepted to go to [facility]. Operations or Procedures CT MAXILLOFACIAL WITHOUT Indication: Follow up facial cellulitis/abscess EXAM DATE: 04/28/2025 09:39 AM COMPARISON: CT MAXILLOFACIAL WITH on DOS: 04/24/25, CT MAXILLOFACIAL WITHOUT on DOS: 04/19/25 TECHNIQUE: CT of the head without intravenous contrast. RADIATION DOSE: CTDIvol: 56.41 mGy, DLP: 1228.28 mGy*cm FINDINGS: Redemonstration of complex lesion/collection seen anterior to the right masseter musculature measuring 1.8 x 1.5 cm, similar to the previous examination. There is right facial region soft tissue stranding. There is beam hardening artifact from adjacent hardware which obscures evaluation. Orbits and retrobulbar spaces unremarkable. Mastoids well pneumatized. Ethmoid and bilateral maxillary sinus disease most pronounced within the right maxillary sinus. Atherosclerotic calcification disease. Moderate cervical degenerative disc disease. IMPRESSION: Similar appearing right facial region complex lesion/ collection anterior to the masseter musculature measuring 1.8 x 1.5 cm with differential considerations including phlegmonous/abscess, soft tissue mass. Recommend ENT/ surgical consultation for further management. Paranasal sinus disease. Condition at Discharge: Stable Final Diagnosis/Problems List Complex lesion/ collection anterior to the right masseter musculature measuring 1.7 cm possilbe Abscess ESRD on HD Discharge Disposition: Acute Care Facility Discharge Instruct/Medications Diet: Consistent carbohydrate, Cardiac 2g Na,low cholest Activity: No Restrictions, As Tolerated Follow Up/Referral: ENT or Maxofacial surgery Scheduled Amlodipine Besylate (Norvasc Tablet), 1 TAB PO DAILY, (Reported) B-Complex W/ C & Folic Acid (Elaina-Noah), 1 OR DAILY, (Reported) Ferric Citrate (Auryxia), 210 MG PO DAILY, (Reported) Furosemide (Lasix), 1 TAB PO DAILY, (Reported) Rivaroxaban (Xarelto Tablet), 15 MG PO BID Tamsulosin Hcl (Tamsulosin Hcl), 1 CAP PO DAILY, (Reported) Miscellaneous Medications B-Complex W/ C-Zn & Folic Acid (Dialyvite 800/Zinc), 800 MG PO, (Reported) Calcium Carbonate-Cholecalcife (Calcium 500 +D 500-10 mg-Mcg), 1 TAB PO, (Reported) Sevelamer Carbonate (Sevelamer Carbonate), 800 MG PO, (Reported) Discharge Statement: "Patient was advised to return to the ER or call 911 if any headaches, dizziness, shortness of breath, chest pain, abdominal pain, bleeding, fevers, or worsening of medical condition. Patient was counseled about treatment plan, medications, possible side effects, patientverbalized understanding. All questions were answered to the best of my ability. This discharge took greater then 30 minutes in planning, reviewing documentation, counseling the patient, and discussing with other team members." ASSESSMENT ASSESSMENT Assessment Complex lesion/ collection anterior to the right masseter musculature measuring 1.7 cm possilbe Abscess ESRD on HD Date of Service: Apr 29, 2025 Billing Provider: MELYSSA LE MD Common Visit Codes: 04637-KPJ/OBS DISCH DAY <30MIN MELYSSA LE MD May 02, 2025 11:15
--- NOTE | 2025-05-03 21:33 | DVHPN2 ---
Consult Progress Note Date Seen: Apr 29, 2025 Subjective Patient reports: Other (approved to [facility] for evaluation by ENT of patients right facial mass . no tooth pain no discharge or yellow grnaulation ) Objective laboratory and microbiology Laboratory Tests 04/29/25 06:02 Test 04/29/25 06:02 Range/Units Serum Glucose 116 H 74-106 mg/dL Problem List/Assessment/Plan Problems(with codes): (1) Septic shock (2) Abscess of face (3) Sepsis (4) 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 Notable history includes recent dental extraction approximately one month ago. The swelling is non-tender and overlying the right cheek. No fevers or chills. No tobacco or drug use. Review of imaging (CT/MRI) demonstrates sinusitis and complex fluid collection/edema along the right face near the masseter, with a focal ovoid structure, possible abscess, and inflammatory/fatty components. Following three days of antibiotics (vancomycin, ceftriaxone), repeat CT showed reduction of the collection to 1.7 cm. Laboratory data: WBC 6.7, hemoglobin 13.9, platelets 253, sodium 134, BUN 46, creatinine 10.9. Abscess cannot be excluded; actinomyces considered as an etiology given the dental association. 04/23: tolerating dialysis and no leukocytosis 04/24: patient is being evaluated for [place] transfer 04/25: patient on vancomycin and ceftriaxone 04/26: cellulitis of face improving. 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 - Still awaiting transfer to higher level of care -recommend HLOC given ESRD and need for ENT/OFMS \-- Continue vancomycin and ceftriaxone. \-- Monitor for progression or improvement of facial cellulitis/abscess. \-- Recommend evaluation by surgical team/ENT at a higher level of care for possible surgical intervention. \-- If improvement, arrange ENT follow-up within 1-2 weeks. Consider at least 30 days of antibiotics as outpatient. \-- Attempt to identify causative organism from the lesion; culture if possible. \-- Screen for diabetes. \-- Defer management of end stage renal disease to nephrology. Isolation Precautions: standard Plan discussed with: Other Dietary Evaluation Review Comments: 1. follow a renal specif diet with 65g protein 2. increase dialysis hours Expected Outcomes/Goals: less uremic syndrome, decrease body wt. FLAQUITO TOLLIVER MD May 03, 2025 21:33
--- NOTE | 2025-05-03 21:33 | DVHPN2 ---
Consult Progress Note Date Seen: Apr 28, 2025 Subjective Patient reports: Other (no diarrhea on end of therapy , patient noted to have no excess volume after dialysis in his legs and has clear lungs ) Objective laboratory and microbiology Laboratory Tests 04/29/25 06:02 Test 04/29/25 06:02 Range/Units Serum Glucose 116 H 74-106 mg/dL Problem List/Assessment/Plan Problems(with codes): (1) Septic shock (2) Abscess of face (3) Sepsis (4) 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 Notable history includes recent dental extraction approximately one month ago. The swelling is non-tender and overlying the right cheek. No fevers or chills. No tobacco or drug use. Review of imaging (CT/MRI) demonstrates sinusitis and complex fluid collection/edema along the right face near the masseter, with a focal ovoid structure, possible abscess, and inflammatory/fatty components. Following three days of antibiotics (vancomycin, ceftriaxone), repeat CT showed reduction of the collection to 1.7 cm. Laboratory data: WBC 6.7, hemoglobin 13.9, platelets 253, sodium 134, BUN 46, creatinine 10.9. Abscess cannot be excluded; actinomyces considered as an etiology given the dental association. 04/23: tolerating dialysis and no leukocytosis 04/24: patient is being evaluated for [place] transfer 04/25: patient on vancomycin and ceftriaxone 04/26: cellulitis of face improving. 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 - Still awaiting transfer to higher level of care -recommend HLOC given ESRD and need for ENT/OFMS \-- Continue vancomycin and ceftriaxone. \-- Monitor for progression or improvement of facial cellulitis/abscess. \-- Recommend evaluation by surgical team/ENT at a higher level of care for possible surgical intervention. \-- If improvement, arrange ENT follow-up within 1-2 weeks. Consider at least 30 days of antibiotics as outpatient. \-- Attempt to identify causative organism from the lesion; culture if possible. \-- Screen for diabetes. \-- Defer management of end stage renal disease to nephrology. Isolation Precautions: standard Plan discussed with: Other Dietary Evaluation Review Comments: 1. follow a renal specif diet with 65g protein 2. increase dialysis hours Expected Outcomes/Goals: less uremic syndrome, decrease body wt. FLAQUITO TOLLIVER MD May 03, 2025 21:33
--- NOTE | 2025-05-03 21:33 | DVHPN2 ---
Consult Progress Note Date Seen: Apr 26, 2025 Subjective Patient reports: Feels better (doing well ,s till having facial cellulitis over the mandable , no double vision ) Objective laboratory and microbiology Laboratory Tests 04/29/25 06:02 Test 04/29/25 06:02 Range/Units Serum Glucose 116 H 74-106 mg/dL Problem List/Assessment/Plan Problems(with codes): (1) Abscess of face (2) Sepsis (3) Chronic deep vein thrombosis (DVT) of internal jugular vein (4) ESRD (end stage renal disease) (5) Facial cellulitis (6) Septic shock Problem List/Assessment/Plan ASSESSMENT AND PLAN: ID Problem List: \-- Right facial cellulitis/possible abscess \-- Advanced stage renal disease \-- Hypertension \-- Recent dental extraction \-- Sinusitis Assessment This is a 44-year-old male with a past medical history of advanced stage renal disease and hypertension, presenting with new right facial swelling over the last 24 hours. Notable history includes recent dental extraction approximately one month ago. The swelling is non-tender and overlying the right cheek. No fevers or chills. No tobacco or drug use. Review of imaging (CT/MRI) demonstrates sinusitis and complex fluid collection/edema along the right face near the masseter, with a focal ovoid structure, possible abscess, and inflammatory/fatty components. Following three days of antibiotics (vancomycin, ceftriaxone), repeat CT showed reduction of the collection to 1.7 cm. Laboratory data: WBC 6.7, hemoglobin 13.9, platelets 253, sodium 134, BUN 46, creatinine 10.9. Abscess cannot be excluded; actinomyces considered as an etiology given the dental association. 04/23: tolerating dialysis and no leukocytosis 04/24: patient is being evaluated for [place] transfer 04/25: patient on vancomycin and ceftriaxone 04/26: cellulitis of face improving. 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 Still awaiting transfer -recommend HLOC given ESRD and need for ENT/OFMS \-- Continue vancomycin and ceftriaxone. \-- Monitor for progression or improvement of facial cellulitis/abscess. \-- Recommend evaluation by surgical team/ENT at a higher level of care for possible surgical intervention. \-- If improvement, arrange ENT follow-up within 1-2 weeks. Consider at least 30 days of antibiotics as outpatient. \-- Attempt to identify causative organism from the lesion; culture if possible. \-- Screen for diabetes. \-- Defer management of end stage renal disease to nephrology. Isolation Precautions: standard Plan discussed with: Other Dietary Evaluation Review Comments: 1. follow a renal specif diet with 65g protein 2. increase dialysis hours Expected Outcomes/Goals: less uremic syndrome, decrease body wt. FLAQUITO TOLLIVER MD May 03, 2025 21:33
--- NOTE | 2025-05-03 21:33 | DVHPN2 ---
Consult Progress Note Date Seen: Apr 27, 2025 Subjective Patient reports: No new complaints Objective laboratory and microbiology Laboratory Tests 04/29/25 06:02 Test 04/29/25 06:02 Range/Units Serum Glucose 116 H 74-106 mg/dL Problem List/Assessment/Plan Problems(with codes): (1) Septic shock (2) Abscess of face (3) Sepsis (4) 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 Notable history includes recent dental extraction approximately one month ago. The swelling is non-tender and overlying the right cheek. No fevers or chills. No tobacco or drug use. Review of imaging (CT/MRI) demonstrates sinusitis and complex fluid collection/edema along the right face near the masseter, with a focal ovoid structure, possible abscess, and inflammatory/fatty components. Following three days of antibiotics (vancomycin, ceftriaxone), repeat CT showed reduction of the collection to 1.7 cm. Laboratory data: WBC 6.7, hemoglobin 13.9, platelets 253, sodium 134, BUN 46, creatinine 10.9. Abscess cannot be excluded; actinomyces considered as an etiology given the dental association. 04/23: tolerating dialysis and no leukocytosis 04/24: patient is being evaluated for [place] transfer 04/25: patient on vancomycin and ceftriaxone 04/26: cellulitis of face improving. 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 - Still awaiting transfer to higher level of care -recommend HLOC given ESRD and need for ENT/OFMS \-- Continue vancomycin and ceftriaxone. \-- Monitor for progression or improvement of facial cellulitis/abscess. \-- Recommend evaluation by surgical team/ENT at a higher level of care for possible surgical intervention. \-- If improvement, arrange ENT follow-up within 1-2 weeks. Consider at least 30 days of antibiotics as outpatient. \-- Attempt to identify causative organism from the lesion; culture if possible. \-- Screen for diabetes. \-- Defer management of end stage renal disease to nephrology. Isolation Precautions: standard Plan discussed with: Other Dietary Evaluation Review Comments: 1. follow a renal specif diet with 65g protein 2. increase dialysis hours Expected Outcomes/Goals: less uremic syndrome, decrease body wt. FLAQUITO TOLLIVER MD May 03, 2025 21:33
== END 2025-04-29 21:15 | disposition short-term general hospital (02) | DRG 602 ==
LOC: ER 10:37 → OVERFLOW 18:27 → EAST 23:11
PROVIDERS: ADMIT Hospitalist; ATTEND Hospitalist
PROC: 5A1D70Z Performance of Urinary Filtration, Intermittent, Less than 6 Hours Per Day (ICD-10-PCS; principal; 2025-04-21)
PROC: 5A1D70Z Performance of Urinary Filtration, Intermittent, Less than 6 Hours Per Day (ICD-10-PCS; 2025-04-23)
PROC: 5A1D70Z Performance of Urinary Filtration, Intermittent, Less than 6 Hours Per Day (ICD-10-PCS; 2025-04-25)
PROC: 5A1D70Z Performance of Urinary Filtration, Intermittent, Less than 6 Hours Per Day (ICD-10-PCS; 2025-04-28)
DX: L02.01 Cutaneous abscess of face (principal); N18.6 End stage renal disease; L03.211 Cellulitis of face; I12.0 Hypertensive chronic kidney disease with stage 5 chronic kidney disease or end stage renal disease; J32.8 Other chronic sinusitis; Z99.2 Dependence on renal dialysis; Z79.01 Long term (current) use of anticoagulants; Z79.899 Other long term (current) drug therapy
CPT/HCPCS: 36415; 70486; 70487; 70540; 80048; 80053; 80202; 82565; 82728; 83540; 83550; 85025; 85652; 86141; 87081; 87340; 90935; G0378